=== PATIENT | female | born 1940 | race Caucasian/White ===

== ENCOUNTER 2021-04-08 15:33 | Inpatient (IN) | payer MEDICARE, OTHER ==
[2021-04-08 16:22] LABS: #Basophils 0.1 thou/uL (0.0-0.2); #Eosinphils 0.7 thou/uL (0.0-0.7); #Lymphocytes 2.3 thou/uL (1.20-3.40); #Monocytes 1.1 thou/uL (0.11-0.59); #Neutrophils 10.7 thou/uL (1.40-6.50); %Basophils 0.5 % (0.0-1.0); %Eosinophils 4.7 % (0.0-10.0); %Lymphocytes 15.3 % (21.0-51.0); %Monocytes 7.2 % (0.0-10.0); %Neutrophils 72.1 % (42.0-75.0); Hemoglobin 12.8 g/dL (12.0-16.0); Mean Corpuscular HGB CONC 33.4 g/dL (32.0-36.0); Mean Corpuscular Hemoglobin 29.6 pg (27.0-31.0); Mean Corpuscular Volume 88.6 fL (78.0-98.0); Mean Platelet Volume 7.7 fL (7.4-10.4); Platelet Count 345 thou/uL (130-400); RBC Distribution Width 13.5 % (11.5-14.5); Red Blood Cell (RBC) Count 4.32 mill/uL (4.20-5.40); White Blood Cell (WBC) Count 14.8 thou/uL (4.8-10.8)
[2021-04-08 16:57] LABS: ALT (SGPT) 8 U/L (8-55); AST (SGOT) 11 U/L (5-34); Albumin 3.7 g/dL (3.4-4.8); Alkaline Phosphatase 70 U/L (40-110); Anion Gap 13 mmol/L (10-20); BUN (Urea Nitrogen) 32 mg/dL (9.8-20.1); Bilirubin, Total 0.2 mg/dL (0.2-1.2); Calc. Creatinine Clearance 0 mL/min (70-130); Calcium 9.8 mg/dL (7.8-10.44); Carbon Dioxide 21 mmol/L (23-31); Chloride 108 mmol/L (98-107); Globulin 3.8 g/dL (2.4-3.5); Glucose 102 mg/dL (83-110); Potassium 4.2 mmol/L (3.5-5.1); Protein, Total 7.5 g/dL (5.8-8.1); Sodium 138 mmol/L (136-145)
[2021-04-08 18:26] LABS: Bacteria/HPF 4+ HPF (None Seen); Bilirubin Negative (Negative); Blood, Urine Negative (Negative); Clarity Turbid (Clear); Glucose, Urine (Dipstick) Normal (Negative); Ketone, Urine Negative (Negative); Leukocyte 500 Leu/uL (Negative); Nitrite 2+ (Negative); Protein, Urine (Dipstick) 50 mg/dL (Neg-Trace); RBC/HPF 0-3 HPF (0-3); Specific Gravity, Urine 1.016 (1.002-1.036); Squamous Epithelial 0-3 HPF (0-3); Urobilinogen Normal mg/dL (Less than 2); WBC/HPF Greater than 50 HPF (0-3); pH, Urine 5.5 (5.0-9.0)
[2021-04-08] MEDS ORDERED: cefTRIAXone\\ROCEPHIN 2 GM VIAL ONE (18:39)
[2021-04-08] MEDS ORDERED: Senokot S 8.6-50 MG TAB PO PRN (20:14)
[2021-04-08] MEDS ORDERED: Bisacodyl 5 MG TAB PO PRN (20:14)
[2021-04-08] MEDS ORDERED: Enoxaparin Sodium 40 MG/0.4 ML SYRINGE SC SCH (20:15)
[2021-04-08] MEDS ORDERED: hydrALAZINE 20 MG/ML VIAL SLOW IVP PRN (20:44)
[2021-04-08] MEDS ORDERED: Dextrose 5% in Water 1,000 ML IV PRN (20:46)
[2021-04-08] MEDS ORDERED: Dextrose 50% Abboject 50 ML SYRINGE SLOW IVP PRN (20:46)
[2021-04-08] MEDS: Famotidine/PF 20 mg/2ml Vial SLOW IVP SCH (23:42)
[2021-04-08] MEDS: Sodium Chloride 0.9% 1,000 ML IV SCH (23:43)
[2021-04-09 00:32] VITALS: BMI 24.0
[2021-04-09 06:15] LABS: #Basophils 0.1 thou/uL (0.0-0.2); #Eosinphils 0.7 thou/uL (0.0-0.7); #Lymphocytes 1.8 thou/uL (1.20-3.40); #Monocytes 0.9 thou/uL (0.11-0.59); #Neutrophils 9.7 thou/uL (1.40-6.50); %Basophils 0.6 % (0.0-1.0); %Eosinophils 5.2 % (0.0-10.0); %Lymphocytes 13.7 % (21.0-51.0); %Neutrophils 73.6 % (42.0-75.0); Hemoglobin 11.4 g/dL (12.0-16.0); Mean Corpuscular HGB CONC 32.3 g/dL (32.0-36.0); Mean Corpuscular Hemoglobin 28.8 pg (27.0-31.0); Mean Platelet Volume 7.7 fL (7.4-10.4); Platelet Count 310 thou/uL (130-400); RBC Distribution Width 13.5 % (11.5-14.5); Red Blood Cell (RBC) Count 3.96 mill/uL (4.20-5.40); White Blood Cell (WBC) Count 13.2 thou/uL (4.8-10.8)
[2021-04-09 06:34] LABS: Anion Gap 12 mmol/L (10-20); BUN (Urea Nitrogen) 24 mg/dL (9.8-20.1); Calc. Creatinine Clearance 37 mL/min (70-130); Calcium 8.7 mg/dL (7.8-10.44); Carbon Dioxide 21 mmol/L (23-31); Chloride 110 mmol/L (98-107); Glucose 149 mg/dL (83-110); Potassium 3.5 mmol/L (3.5-5.1); Sodium 139 mmol/L (136-145)
[2021-04-09 06:35] LABS: Hemoglobin A1c 5.9 % (4.0-6.0)
[2021-04-09] MEDS ORDERED: FLU VACC QS2021-22(65YR UP)/PF 240 MCG/0.7 ML SYRINGE IM ONE (09:00)
[2021-04-09] MEDS ORDERED: Amlodipine 10 MG TAB PO SCH (12:00)
[2021-04-09 17:03] LABS: SARS-CoV-2 PCR by NAA Not Detected (NotDetected)
[2021-04-09] MEDS: Sodium Chloride 0.9% 1,000 ML IV SCH (17:53)
[2021-04-09] MEDS: cefTRIAXone\\ROCEPHIN 2 GM in Sodium Chloride 0.9% 100 ML IVPB SCH (17:54)
[2021-04-09] MEDS: Famotidine/PF 20 mg/2ml Vial SLOW IVP SCH (20:13)
[2021-04-09] MEDS: Acetaminophen 325 MG TAB PO PRN (20:14)
[2021-04-09] MEDS: Enoxaparin Sodium 30 MG/0.3 ML SYRINGE SC SCH (20:14)
[2021-04-09] MEDS ORDERED: Enoxaparin Sodium 40 MG/0.4 ML SYRINGE SC SCH (21:00)
[2021-04-10 06:44] LABS: #Basophils 0.1 thou/uL (0.0-0.2); #Eosinphils 0.7 thou/uL (0.0-0.7); #Monocytes 1.2 thou/uL (0.11-0.59); #Neutrophils 9.5 thou/uL (1.40-6.50); %Basophils 0.7 % (0.0-1.0); %Monocytes 9.1 % (0.0-10.0); %Neutrophils 70.2 % (42.0-75.0); Hemoglobin 12.2 g/dL (12.0-16.0); Mean Corpuscular HGB CONC 33.9 g/dL (32.0-36.0); Mean Corpuscular Hemoglobin 29.7 pg (27.0-31.0); Mean Corpuscular Volume 87.6 fL (78.0-98.0); Mean Platelet Volume 7.6 fL (7.4-10.4); Platelet Count 340 thou/uL (130-400); RBC Distribution Width 13.4 % (11.5-14.5); Red Blood Cell (RBC) Count 4.09 mill/uL (4.20-5.40); White Blood Cell (WBC) Count 13.5 thou/uL (4.8-10.8)
[2021-04-10 06:59] LABS: Anion Gap 14 mmol/L (10-20); BUN (Urea Nitrogen) 14 mg/dL (9.8-20.1); Calc. Creatinine Clearance 41 mL/min (70-130); Calcium 8.6 mg/dL (7.8-10.44); Carbon Dioxide 21 mmol/L (23-31); Chloride 107 mmol/L (98-107); Glucose 199 mg/dL (83-110); Potassium 3.3 mmol/L (3.5-5.1); Sodium 139 mmol/L (136-145)
[2021-04-10] MEDS ORDERED: Potassium Chloride 20 MEQ TAB PO SCH (09:00)
[2021-04-10] MEDS: Amlodipine 10 MG TAB PO SCH (09:31)
[2021-04-10] MEDS: Sodium Chloride 0.9% 1,000 ML IV SCH (12:24)
[2021-04-10] MEDS: HumaLOG 300 UNITS/3 ML VIAL SC PRN ×3 (12:53→22:18)
[2021-04-10] MEDS: Acetaminophen 325 MG TAB PO PRN (16:38)
[2021-04-10] MEDS: cefTRIAXone\\ROCEPHIN 2 GM in Sodium Chloride 0.9% 100 ML IVPB SCH (17:43)
[2021-04-10] MEDS ORDERED: Dextrose 50% Abboject 50 ML SYRINGE SLOW IVP PRN (21:38)
[2021-04-10] MEDS ORDERED: Dextrose 5% in Water 1,000 ML IV PRN (21:38)
[2021-04-10] MEDS: Enoxaparin Sodium 30 MG/0.3 ML SYRINGE SC SCH (21:39)
[2021-04-10] MEDS: Famotidine/PF 20 mg/2ml Vial SLOW IVP SCH (21:40)
[2021-04-11] MEDS ORDERED: Lorazepam 2 MG/ML VIAL SLOW IVP SCH ×2 (01:58→21:00)
[2021-04-11] MEDS: HumaLOG 300 UNITS/3 ML VIAL SC PRN ×4 (05:22→23:45)
[2021-04-11 07:27] LABS: #Basophils 0.1 thou/uL (0.0-0.2); #Eosinphils 0.8 thou/uL (0.0-0.7); #Lymphocytes 2.1 thou/uL (1.20-3.40); #Monocytes 1.4 thou/uL (0.11-0.59); #Neutrophils 12.2 thou/uL (1.40-6.50); %Basophils 0.7 % (0.0-1.0); %Eosinophils 4.7 % (0.0-10.0); %Lymphocytes 12.5 % (21.0-51.0); %Monocytes 8.6 % (0.0-10.0); %Neutrophils 73.6 % (42.0-75.0); Hemoglobin 12.3 g/dL (12.0-16.0); Mean Corpuscular HGB CONC 33.9 g/dL (32.0-36.0); Mean Corpuscular Hemoglobin 29.7 pg (27.0-31.0); Mean Corpuscular Volume 87.8 fL (78.0-98.0); Mean Platelet Volume 7.9 fL (7.4-10.4); Platelet Count 338 thou/uL (130-400); RBC Distribution Width 13.5 % (11.5-14.5); Red Blood Cell (RBC) Count 4.14 mill/uL (4.20-5.40); White Blood Cell (WBC) Count 16.6 thou/uL (4.8-10.8)
[2021-04-11 07:47] LABS: Anion Gap 15 mmol/L (10-20); BUN (Urea Nitrogen) 14 mg/dL (9.8-20.1); Calc. Creatinine Clearance 37 mL/min (70-130); Calcium 8.3 mg/dL (7.8-10.44); Carbon Dioxide 21 mmol/L (23-31); Chloride 106 mmol/L (98-107); Glucose 185 mg/dL (83-110); Potassium 3.5 mmol/L (3.5-5.1); Sodium 138 mmol/L (136-145)
[2021-04-11] MEDS: Amlodipine 10 MG TAB PO SCH (08:32)
[2021-04-11] MEDS: Carvedilol 25 MG TAB PO SCH ×2 (09:25→23:44)
[2021-04-11] MEDS: ALPRAZolam 0.25 MG TAB PO SCH ×2 (09:25→23:44)
[2021-04-11] MEDS: DULoxetine 60 MG CAP PO SCH (09:25)
[2021-04-11] MEDS: Sodium Chloride 0.9% 1,000 ML IV SCH ×3 (09:27→23:45)
[2021-04-11] MEDS: cefTRIAXone\\ROCEPHIN 2 GM in Sodium Chloride 0.9% 100 ML IVPB SCH ×2 (17:39→17:50)
[2021-04-11] MEDS: Enoxaparin Sodium 30 MG/0.3 ML SYRINGE SC SCH (23:44)
[2021-04-11] MEDS: Famotidine/PF 20 mg/2ml Vial SLOW IVP SCH (23:45)
[2021-04-12] MEDS: HumaLOG 300 UNITS/3 ML VIAL SC PRN ×4 (05:17→21:08)
[2021-04-12 07:50] LABS: #Basophils 0.1 thou/uL (0.0-0.2); #Eosinphils 1.1 thou/uL (0.0-0.7); #Lymphocytes 1.6 thou/uL (1.20-3.40); #Monocytes 1.2 thou/uL (0.11-0.59); #Neutrophils 10.4 thou/uL (1.40-6.50); %Basophils 0.5 % (0.0-1.0); %Eosinophils 7.9 % (0.0-10.0); %Lymphocytes 10.9 % (21.0-51.0); %Monocytes 8.1 % (0.0-10.0); %Neutrophils 72.6 % (42.0-75.0); Hemoglobin 11.6 g/dL (12.0-16.0); Mean Corpuscular HGB CONC 33.3 g/dL (32.0-36.0); Mean Corpuscular Hemoglobin 29.5 pg (27.0-31.0); Mean Corpuscular Volume 88.6 fL (78.0-98.0); Mean Platelet Volume 7.3 fL (7.4-10.4); Platelet Count 323 thou/uL (130-400); RBC Distribution Width 13.6 % (11.5-14.5); Red Blood Cell (RBC) Count 3.94 mill/uL (4.20-5.40); White Blood Cell (WBC) Count 14.3 thou/uL (4.8-10.8)
[2021-04-12 08:12] LABS: Anion Gap 12 mmol/L (10-20); BUN (Urea Nitrogen) 12 mg/dL (9.8-20.1); Calc. Creatinine Clearance 45 mL/min (70-130); Calcium 7.9 mg/dL (7.8-10.44); Carbon Dioxide 23 mmol/L (23-31); Chloride 108 mmol/L (98-107); Glucose 190 mg/dL (83-110); Sodium 140 mmol/L (136-145)
[2021-04-12] MEDS ORDERED: Potassium Chloride 20 MEQ TAB PO SCH (08:45)
[2021-04-12] MEDS: ALPRAZolam 0.25 MG TAB PO SCH ×2 (09:09→20:06)
[2021-04-12] MEDS: Carvedilol 25 MG TAB PO SCH ×2 (09:09→20:06)
[2021-04-12] MEDS: Amlodipine 10 MG TAB PO SCH (09:09)
[2021-04-12] MEDS: DULoxetine 60 MG CAP PO SCH (09:09)
[2021-04-12] MEDS: Sodium Chloride 0.9% 1,000 ML IV SCH (12:21)
[2021-04-12] MEDS: cefTRIAXone\\ROCEPHIN 2 GM in Sodium Chloride 0.9% 100 ML IVPB SCH (17:49)
[2021-04-12] MEDS: Famotidine/PF 20 mg/2ml Vial SLOW IVP SCH (20:06)
[2021-04-12] MEDS: Enoxaparin Sodium 40 MG/0.4 ML SYRINGE SC SCH (20:06)
[2021-04-12] MEDS ORDERED: Lorazepam 2 MG/ML VIAL SLOW IVP SCH (22:30)
[2021-04-13] MEDS: Sodium Chloride 0.9% 1,000 ML IV SCH ×2 (02:58→17:59)
[2021-04-13] MEDS: HumaLOG 300 UNITS/3 ML VIAL SC PRN ×4 (05:18→20:54)
[2021-04-13 07:49] LABS: #Basophils 0.1 thou/uL (0.0-0.2); #Eosinphils 1.2 thou/uL (0.0-0.7); #Lymphocytes 1.8 thou/uL (1.20-3.40); #Monocytes 1.4 thou/uL (0.11-0.59); #Neutrophils 11.4 thou/uL (1.40-6.50); %Basophils 0.4 % (0.0-1.0); %Eosinophils 7.8 % (0.0-10.0); %Lymphocytes 11.1 % (21.0-51.0); %Monocytes 8.7 % (0.0-10.0); %Neutrophils 71.9 % (42.0-75.0); Hemoglobin 11.4 g/dL (12.0-16.0); Mean Corpuscular HGB CONC 32.6 g/dL (32.0-36.0); Mean Corpuscular Hemoglobin 28.8 pg (27.0-31.0); Mean Corpuscular Volume 88.5 fL (78.0-98.0); Mean Platelet Volume 7.7 fL (7.4-10.4); Platelet Count 319 thou/uL (130-400); RBC Distribution Width 13.6 % (11.5-14.5); Red Blood Cell (RBC) Count 3.94 mill/uL (4.20-5.40); White Blood Cell (WBC) Count 15.8 thou/uL (4.8-10.8)
[2021-04-13 08:11] LABS: Anion Gap 13 mmol/L (10-20); BUN (Urea Nitrogen) 13 mg/dL (9.8-20.1); Calc. Creatinine Clearance 41 mL/min (70-130); Carbon Dioxide 24 mmol/L (23-31); Chloride 105 mmol/L (98-107); Glucose 168 mg/dL (83-110); Potassium 3.2 mmol/L (3.5-5.1); Sodium 139 mmol/L (136-145)
[2021-04-13] MEDS: Amlodipine 10 MG TAB PO SCH (09:51)
[2021-04-13] MEDS: DULoxetine 60 MG CAP PO SCH (09:51)
[2021-04-13] MEDS: ALPRAZolam 0.25 MG TAB PO SCH ×2 (09:51→20:54)
[2021-04-13] MEDS: Carvedilol 25 MG TAB PO SCH ×2 (09:51→20:54)
[2021-04-13] MEDS: cefTRIAXone\\ROCEPHIN 2 GM in Sodium Chloride 0.9% 100 ML IVPB SCH (17:58)
[2021-04-13] MEDS: Enoxaparin Sodium 40 MG/0.4 ML SYRINGE SC SCH (20:53)
[2021-04-13] MEDS: Famotidine/PF 20 mg/2ml Vial SLOW IVP SCH (20:53)
[2021-04-13] MEDS: Acetaminophen 325 MG TAB PO PRN (20:55)
[2021-04-14] MEDS: HumaLOG 300 UNITS/3 ML VIAL SC PRN ×3 (05:03→22:05)
[2021-04-14] MEDS: Sodium Chloride 0.9% 1,000 ML IV SCH ×2 (05:06→17:04)
[2021-04-14] MEDS: Amlodipine 10 MG TAB PO SCH (07:46)
[2021-04-14] MEDS: ALPRAZolam 0.25 MG TAB PO SCH ×2 (07:46→20:40)
[2021-04-14] MEDS: Carvedilol 25 MG TAB PO SCH ×2 (07:46→20:40)
[2021-04-14] MEDS: DULoxetine 60 MG CAP PO SCH (07:46)
[2021-04-14 08:17] LABS: #Basophils 0.1 thou/uL (0.0-0.2); #Eosinphils 1.1 thou/uL (0.0-0.7); #Monocytes 1.4 thou/uL (0.11-0.59); #Neutrophils 10.8 thou/uL (1.40-6.50); %Basophils 0.4 % (0.0-1.0); %Eosinophils 7.1 % (0.0-10.0); %Lymphocytes 13.1 % (21.0-51.0); %Monocytes 8.8 % (0.0-10.0); %Neutrophils 70.6 % (42.0-75.0); Hemoglobin 11.4 g/dL (12.0-16.0); Mean Corpuscular HGB CONC 32.3 g/dL (32.0-36.0); Mean Corpuscular Hemoglobin 29.3 pg (27.0-31.0); Mean Corpuscular Volume 90.7 fL (78.0-98.0); Mean Platelet Volume 7.5 fL (7.4-10.4); Platelet Count 329 thou/uL (130-400); RBC Distribution Width 13.9 % (11.5-14.5); Red Blood Cell (RBC) Count 3.89 mill/uL (4.20-5.40); White Blood Cell (WBC) Count 15.4 thou/uL (4.8-10.8)
[2021-04-14 08:32] LABS: Anion Gap 17 mmol/L (10-20); BUN (Urea Nitrogen) 13 mg/dL (9.8-20.1); Calc. Creatinine Clearance 42 mL/min (70-130); Calcium 7.9 mg/dL (7.8-10.44); Carbon Dioxide 19 mmol/L (23-31); Chloride 107 mmol/L (98-107); Glucose 180 mg/dL (83-110); Potassium 3.5 mmol/L (3.5-5.1); Sodium 139 mmol/L (136-145)
[2021-04-14 10:08] LABS: Band 1 % (5-11); Eosinophils 9 % (0-10); Lymphocytes 12 % (21-51); MDiff Complete? YES; Monocytes 6 % (0-10); Neutrophil 71 % (42-75); RBC Morphology Normal; Reactive Lymphocytes 1 % (0-10)
[2021-04-14] MEDS ORDERED: MEROPENEM 1 GM/50 ML 1 GM in Premix Bag 1 BAG IVPB SCH ×2 (13:00→21:00)
[2021-04-14] MEDS ORDERED: Meropenem 1 GM in Sodium Chloride 0.9% 100 ML IVPB SCH (14:00)
[2021-04-14] MEDS: Enoxaparin Sodium 40 MG/0.4 ML SYRINGE SC SCH (20:40)
[2021-04-14] MEDS: Famotidine/PF 20 mg/2ml Vial SLOW IVP SCH (20:40)
[2021-04-14] MEDS ORDERED: Ziprasidone 20 MG VIAL IM SCH (22:45)
[2021-04-15] MEDS: Sodium Chloride 0.9% 1,000 ML IV SCH ×2 (04:31→21:13)
[2021-04-15] MEDS: HumaLOG 300 UNITS/3 ML VIAL SC PRN ×3 (06:13→21:14)
[2021-04-15 07:25] LABS: #Basophils 0.1 thou/uL (0.0-0.2); #Eosinphils 0.7 thou/uL (0.0-0.7); #Lymphocytes 2.1 thou/uL (1.20-3.40); #Monocytes 1.5 thou/uL (0.11-0.59); #Neutrophils 11.4 thou/uL (1.40-6.50); %Basophils 0.5 % (0.0-1.0); %Eosinophils 4.5 % (0.0-10.0); %Lymphocytes 13.5 % (21.0-51.0); %Monocytes 9.2 % (0.0-10.0); %Neutrophils 72.4 % (42.0-75.0); Hemoglobin 11.8 g/dL (12.0-16.0); Mean Corpuscular HGB CONC 33.1 g/dL (32.0-36.0); Mean Corpuscular Volume 90.5 fL (78.0-98.0); Mean Platelet Volume 7.6 fL (7.4-10.4); Platelet Count 328 thou/uL (130-400); RBC Distribution Width 13.9 % (11.5-14.5); Red Blood Cell (RBC) Count 3.94 mill/uL (4.20-5.40); White Blood Cell (WBC) Count 15.8 thou/uL (4.8-10.8)
[2021-04-15 07:45] LABS: Anion Gap 14 mmol/L (10-20); BUN (Urea Nitrogen) 15 mg/dL (9.8-20.1); Calc. Creatinine Clearance 39 mL/min (70-130); Carbon Dioxide 25 mmol/L (23-31); Chloride 103 mmol/L (98-107); Glucose 237 mg/dL (83-110); Sodium 139 mmol/L (136-145)
[2021-04-15] MEDS: ALPRAZolam 0.25 MG TAB PO SCH ×2 (08:15→21:07)
[2021-04-15] MEDS: Carvedilol 25 MG TAB PO SCH ×2 (08:15→21:07)
[2021-04-15] MEDS: Cefepime 1 GM in Sodium Chloride 0.9% 100 ML IVPB SCH ×2 (08:15→21:13)
[2021-04-15] MEDS: DULoxetine 60 MG CAP PO SCH (08:15)
[2021-04-15] MEDS: Amlodipine 10 MG TAB PO SCH (08:15)
[2021-04-15] MEDS: Famotidine/PF 20 mg/2ml Vial SLOW IVP SCH (21:08)
[2021-04-15] MEDS: Enoxaparin Sodium 40 MG/0.4 ML SYRINGE SC SCH (21:08)
[2021-04-16 08:55] LABS: Band 4 % (5-11); Eosinophils 6 % (0-10); Hemoglobin 12.4 g/dL (12.0-16.0); Lymphocytes 10 % (21-51); MDiff Complete? YES; Mean Corpuscular HGB CONC 33.6 g/dL (32.0-36.0); Mean Corpuscular Hemoglobin 30.1 pg (27.0-31.0); Mean Corpuscular Volume 89.5 fL (78.0-98.0); Mean Platelet Volume 7.3 fL (7.4-10.4); Monocytes 4 % (0-10); Neutrophil 76 % (42-75); Platelet Count 370 thou/uL (130-400); RBC Distribution Width 13.5 % (11.5-14.5); Red Blood Cell (RBC) Count 4.13 mill/uL (4.20-5.40); White Blood Cell (WBC) Count 21.8 thou/uL (4.8-10.8)
[2021-04-16 08:59] LABS: Anion Gap 15 mmol/L (10-20); BUN (Urea Nitrogen) 15 mg/dL (9.8-20.1); Calc. Creatinine Clearance 48 mL/min (70-130); Calcium 7.8 mg/dL (7.8-10.44); Carbon Dioxide 24 mmol/L (23-31); Chloride 102 mmol/L (98-107); Glucose 271 mg/dL (83-110); Sodium 138 mmol/L (136-145)
[2021-04-16 09:07] LABS: Potassium 2.9 mmol/L (3.5-5.1)
[2021-04-16] MEDS ORDERED: Potassium Bicarbonate/Cit Ac 20 MEQ TAB PO SCH (09:45)
[2021-04-16] MEDS: DULoxetine 60 MG CAP PO SCH (10:30)
[2021-04-16] MEDS: Amlodipine 10 MG TAB PO SCH (10:31)
[2021-04-16] MEDS: Cefepime 1 GM in Sodium Chloride 0.9% 100 ML IVPB SCH (10:32)
[2021-04-16] MEDS: Carvedilol 25 MG TAB PO SCH ×2 (10:32→21:18)
[2021-04-16] MEDS: ALPRAZolam 0.25 MG TAB PO SCH ×2 (10:32→21:18)
[2021-04-16] MEDS: Vancomycin 1 GM in Premix Bag 1 BAG IVPB SCH (12:58)
[2021-04-16] MEDS: Sodium Chloride 0.9% 1,000 ML IV SCH (13:35)
[2021-04-16] MEDS: HumaLOG 300 UNITS/3 ML VIAL SC PRN ×2 (18:06→21:35)
[2021-04-16 20:22] LABS: SARS-CoV-2 PCR by NAA Not Detected (NotDetected)
[2021-04-16] MEDS: Enoxaparin Sodium 40 MG/0.4 ML SYRINGE SC SCH (21:18)
[2021-04-16] MEDS: Aztreonam 1 GM in Sodium Chloride 0.9% 100 ML IVPB SCH (21:18)
[2021-04-16] MEDS: Famotidine/PF 20 mg/2ml Vial SLOW IVP SCH (21:19)
[2021-04-17] MEDS: Sodium Chloride 0.9% 1,000 ML IV SCH ×3 (02:36→19:20)
[2021-04-17 08:55] LABS: #Basophils 0.1 thou/uL (0.0-0.2); #Eosinphils 1.1 thou/uL (0.0-0.7); #Lymphocytes 2.1 thou/uL (1.20-3.40); #Monocytes 1.9 thou/uL (0.11-0.59); #Neutrophils 20.4 thou/uL (1.40-6.50); %Basophils 0.3 % (0.0-1.0); %Eosinophils 4.4 % (0.0-10.0); %Lymphocytes 8.2 % (21.0-51.0); %Monocytes 7.5 % (0.0-10.0); %Neutrophils 79.6 % (42.0-75.0); Hemoglobin 11.7 g/dL (12.0-16.0); Mean Corpuscular HGB CONC 32.3 g/dL (32.0-36.0); Mean Platelet Volume 7.5 fL (7.4-10.4); Platelet Count 369 thou/uL (130-400); RBC Distribution Width 13.8 % (11.5-14.5); Red Blood Cell (RBC) Count 4.05 mill/uL (4.20-5.40); White Blood Cell (WBC) Count 25.6 thou/uL (4.8-10.8)
[2021-04-17] MEDS: Aztreonam 1 GM in Sodium Chloride 0.9% 100 ML IVPB SCH ×2 (08:58→22:21)
[2021-04-17] MEDS: Amlodipine 10 MG TAB PO SCH (08:58)
[2021-04-17] MEDS: Carvedilol 25 MG TAB PO SCH ×2 (08:58→22:20)
[2021-04-17] MEDS: ALPRAZolam 0.25 MG TAB PO SCH ×2 (08:58→22:20)
[2021-04-17] MEDS: DULoxetine 60 MG CAP PO SCH (08:58)
[2021-04-17 09:17] LABS: Anion Gap 15 mmol/L (10-20); BUN (Urea Nitrogen) 17 mg/dL (9.8-20.1); Calc. Creatinine Clearance 52 mL/min (70-130); Calcium 7.7 mg/dL (7.8-10.44); Carbon Dioxide 24 mmol/L (23-31); Chloride 102 mmol/L (98-107); Glucose 241 mg/dL (83-110); Potassium 3.6 mmol/L (3.5-5.1); Sodium 137 mmol/L (136-145)
[2021-04-17] MEDS: Vancomycin 1 GM in Premix Bag 1 BAG IVPB SCH (11:44)
[2021-04-17] MEDS: HumaLOG 300 UNITS/3 ML VIAL SC PRN ×2 (11:44→18:02)
[2021-04-17] MEDS: diphenhydrAMINE 25 MG CAP PO PRN (15:44)
[2021-04-17] MEDS: Acetaminophen 325 MG TAB PO PRN (22:20)
[2021-04-17] MEDS: Famotidine/PF 20 mg/2ml Vial SLOW IVP SCH (22:21)
[2021-04-17] MEDS: Enoxaparin Sodium 40 MG/0.4 ML SYRINGE SC SCH (22:21)
[2021-04-18 07:29] LABS: #Basophils 0.1 thou/uL (0.0-0.2); #Eosinphils 0.8 thou/uL (0.0-0.7); #Lymphocytes 2.5 thou/uL (1.20-3.40); #Monocytes 1.6 thou/uL (0.11-0.59); #Neutrophils 18.4 thou/uL (1.40-6.50); %Basophils 0.3 % (0.0-1.0); %Eosinophils 3.3 % (0.0-10.0); %Lymphocytes 10.8 % (21.0-51.0); %Monocytes 6.7 % (0.0-10.0); %Neutrophils 78.9 % (42.0-75.0); Hemoglobin 11.9 g/dL (12.0-16.0); Mean Corpuscular HGB CONC 31.6 g/dL (32.0-36.0); Mean Corpuscular Hemoglobin 28.5 pg (27.0-31.0); Mean Corpuscular Volume 90.1 fL (78.0-98.0); Mean Platelet Volume 7.6 fL (7.4-10.4); Platelet Count 399 thou/uL (130-400); RBC Distribution Width 13.6 % (11.5-14.5); Red Blood Cell (RBC) Count 4.17 mill/uL (4.20-5.40); White Blood Cell (WBC) Count 23.3 thou/uL (4.8-10.8)
[2021-04-18 07:44] LABS: Anion Gap 15 mmol/L (10-20); BUN (Urea Nitrogen) 17 mg/dL (9.8-20.1); Calc. Creatinine Clearance 51 mL/min (70-130); Calcium 7.6 mg/dL (7.8-10.44); Carbon Dioxide 23 mmol/L (23-31); Chloride 100 mmol/L (98-107); Glucose 211 mg/dL (83-110); Sodium 135 mmol/L (136-145)
[2021-04-18] MEDS: Aztreonam 1 GM in Sodium Chloride 0.9% 100 ML IVPB SCH ×2 (10:14→20:38)
[2021-04-18] MEDS: Carvedilol 25 MG TAB PO SCH ×2 (10:14→20:37)
[2021-04-18] MEDS: ALPRAZolam 0.25 MG TAB PO SCH ×2 (10:14→20:36)
[2021-04-18] MEDS: Amlodipine 10 MG TAB PO SCH (10:14)
[2021-04-18] MEDS: DULoxetine 60 MG CAP PO SCH (10:14)
[2021-04-18] MEDS: Sodium Chloride 0.9% 1,000 ML IV SCH ×2 (10:15→13:17)
[2021-04-18] MEDS ORDERED: Potassium Chloride 20 MEQ TAB PO SCH (12:30)
[2021-04-18] MEDS: Vancomycin 1 GM in Premix Bag 1 BAG IVPB SCH (12:52)
[2021-04-18] MEDS: HumaLOG 300 UNITS/3 ML VIAL SC PRN ×2 (13:09→22:14)
[2021-04-18] MEDS: diphenhydrAMINE 25 MG CAP PO PRN (16:15)
[2021-04-18] MEDS: Famotidine/PF 20 mg/2ml Vial SLOW IVP SCH (20:35)
[2021-04-18] MEDS: Enoxaparin Sodium 40 MG/0.4 ML SYRINGE SC SCH (20:36)
[2021-04-19] MEDS: Sodium Chloride 0.9% 1,000 ML IV SCH ×3 (00:06→12:23)
[2021-04-19] MEDS: HumaLOG 300 UNITS/3 ML VIAL SC PRN ×4 (06:04→20:10)
[2021-04-19] MEDS: diphenhydrAMINE 25 MG CAP PO PRN ×3 (06:15→20:03)
[2021-04-19 07:30] LABS: #Eosinphils 0.8 thou/uL (0.0-0.7); #Monocytes 1.4 thou/uL (0.11-0.59); %Eosinophils 4.1 % (0.0-10.0); %Monocytes 6.9 % (0.0-10.0); Hemoglobin 10.6 g/dL (12.0-16.0); Mean Corpuscular HGB CONC 31.9 g/dL (32.0-36.0); Mean Corpuscular Hemoglobin 28.9 pg (27.0-31.0); Mean Corpuscular Volume 90.7 fL (78.0-98.0); Mean Platelet Volume 7.5 fL (7.4-10.4); Platelet Count 342 thou/uL (130-400); RBC Distribution Width 13.6 % (11.5-14.5); Red Blood Cell (RBC) Count 3.67 mill/uL (4.20-5.40); White Blood Cell (WBC) Count 20.3 thou/uL (4.8-10.8)
[2021-04-19 07:48] LABS: Anion Gap 15 mmol/L (10-20); BUN (Urea Nitrogen) 18 mg/dL (9.8-20.1); Calc. Creatinine Clearance 44 mL/min (70-130); Calcium 6.9 mg/dL (7.8-10.44); Carbon Dioxide 19 mmol/L (23-31); Chloride 104 mmol/L (98-107); Glucose 195 mg/dL (83-110); Potassium 3.2 mmol/L (3.5-5.1); Sodium 135 mmol/L (136-145)
[2021-04-19] MEDS: Carvedilol 25 MG TAB PO SCH ×2 (09:02→20:05)
[2021-04-19] MEDS: Amlodipine 10 MG TAB PO SCH (09:02)
[2021-04-19] MEDS: DULoxetine 60 MG CAP PO SCH (09:02)
[2021-04-19] MEDS: Aztreonam 1 GM in Sodium Chloride 0.9% 100 ML IVPB SCH ×2 (09:02→20:04)
[2021-04-19] MEDS: ALPRAZolam 0.25 MG TAB PO SCH ×2 (09:02→20:03)
[2021-04-19 11:55] LABS: Vancomycin, Trough 6.6 ug/mL
[2021-04-19] MEDS: Famotidine/PF 20 mg/2ml Vial SLOW IVP SCH (20:05)
[2021-04-19] MEDS: Enoxaparin Sodium 40 MG/0.4 ML SYRINGE SC SCH (20:13)
[2021-04-19] MEDS: Acetaminophen 325 MG TAB PO PRN (22:54)
[2021-04-20] MEDS: diphenhydrAMINE 25 MG CAP PO PRN ×2 (04:32→21:31)
[2021-04-20] MEDS: Sodium Chloride 0.9% 1,000 ML IV SCH (04:33)
[2021-04-20 06:13] LABS: #Basophils 0.1 thou/uL (0.0-0.2); #Eosinphils 0.8 thou/uL (0.0-0.7); #Monocytes 1.9 thou/uL (0.11-0.59); #Neutrophils 16.7 thou/uL (1.40-6.50); %Basophils 0.5 % (0.0-1.0); %Eosinophils 3.5 % (0.0-10.0); %Lymphocytes 13.3 % (21.0-51.0); %Monocytes 8.6 % (0.0-10.0); Hemoglobin 10.5 g/dL (12.0-16.0); Mean Corpuscular HGB CONC 31.1 g/dL (32.0-36.0); Mean Corpuscular Hemoglobin 28.3 pg (27.0-31.0); Mean Corpuscular Volume 91.1 fL (78.0-98.0); Mean Platelet Volume 7.8 fL (7.4-10.4); Platelet Count 408 thou/uL (130-400); RBC Distribution Width 13.7 % (11.5-14.5); Red Blood Cell (RBC) Count 3.72 mill/uL (4.20-5.40); White Blood Cell (WBC) Count 22.5 thou/uL (4.8-10.8)
[2021-04-20 06:28] LABS: Anion Gap 14 mmol/L (10-20); BUN (Urea Nitrogen) 18 mg/dL (9.8-20.1); Calc. Creatinine Clearance 48 mL/min (70-130); Calcium 7.8 mg/dL (7.8-10.44); Carbon Dioxide 23 mmol/L (23-31); Chloride 102 mmol/L (98-107); Glucose 196 mg/dL (83-110); Potassium 3.1 mmol/L (3.5-5.1); Sodium 136 mmol/L (136-145)
[2021-04-20] MEDS: Aztreonam 1 GM in Sodium Chloride 0.9% 100 ML IVPB SCH (09:35)
[2021-04-20] MEDS: ALPRAZolam 0.25 MG TAB PO SCH ×2 (09:49→21:22)
[2021-04-20] MEDS: DULoxetine 60 MG CAP PO SCH (09:57)
[2021-04-20] MEDS: Amlodipine 10 MG TAB PO SCH (09:58)
[2021-04-20] MEDS: Carvedilol 25 MG TAB PO SCH ×2 (09:58→21:24)
[2021-04-20] MEDS: HumaLOG 300 UNITS/3 ML VIAL SC PRN ×2 (13:30→21:39)
[2021-04-20] MEDS ORDERED: Potassium Chloride 20 MEQ TAB PO SCH (14:45)
[2021-04-20] MEDS: Famotidine/PF 20 mg/2ml Vial SLOW IVP SCH (21:22)
[2021-04-20] MEDS: Enoxaparin Sodium 40 MG/0.4 ML SYRINGE SC SCH (21:23)
[2021-04-21] MEDS: diphenhydrAMINE 25 MG CAP PO PRN (05:52)
[2021-04-21] MEDS: Acetaminophen 325 MG TAB PO PRN (05:52)
[2021-04-21 06:48] LABS: Band 13 % (5-11); Eosinophils 1 % (0-10); Hemoglobin 9.9 g/dL (12.0-16.0); Hypochromia SLIGHT = 6-15 cells (100X) (0-5/hpf); Lymphocytes 13 % (21-51); MDiff Complete? YES; Mean Corpuscular HGB CONC 30.4 g/dL (32.0-36.0); Mean Corpuscular Hemoglobin 28.2 pg (27.0-31.0); Mean Corpuscular Volume 92.6 fL (78.0-98.0); Mean Platelet Volume 7.5 fL (7.4-10.4); Monocytes 13 % (0-10); Neutrophil 60 % (42-75); Platelet Count 405 thou/uL (130-400); Platelet Morphology Comment Appears Increased; RBC Distribution Width 13.9 % (11.5-14.5); White Blood Cell (WBC) Count 21.4 thou/uL (4.8-10.8)
[2021-04-21 06:50] LABS: Anion Gap 16 mmol/L (10-20); BUN (Urea Nitrogen) 17 mg/dL (9.8-20.1); Calc. Creatinine Clearance 47 mL/min (70-130); Calcium 7.9 mg/dL (7.8-10.44); Carbon Dioxide 19 mmol/L (23-31); Chloride 106 mmol/L (98-107); Glucose 248 mg/dL (83-110); Potassium 3.7 mmol/L (3.5-5.1); Sodium 137 mmol/L (136-145)
[2021-04-21] MEDS: Sodium Chloride 0.9% 1,000 ML IV SCH ×3 (08:39→18:00)
[2021-04-21] MEDS: ALPRAZolam 0.25 MG TAB PO SCH ×2 (08:41→20:04)
[2021-04-21] MEDS: DULoxetine 60 MG CAP PO SCH (08:41)
[2021-04-21] MEDS: Amlodipine 10 MG TAB PO SCH (08:41)
[2021-04-21] MEDS: Carvedilol 25 MG TAB PO SCH ×2 (08:42→20:05)
[2021-04-21] MEDS: metFORMIN 500 MG TAB PO SCH ×2 (08:42→18:00)
[2021-04-21] MEDS: glipiZIDE 5 MG TAB PO SCH (08:42)
[2021-04-21] MEDS: Alogliptin 25 MG TAB PO SCH (09:44)
[2021-04-21] MEDS: HumaLOG 300 UNITS/3 ML VIAL SC PRN (12:04)
[2021-04-21] MEDS: Enoxaparin Sodium 40 MG/0.4 ML SYRINGE SC SCH (20:05)
[2021-04-21] MEDS: Famotidine/PF 20 mg/2ml Vial SLOW IVP SCH (20:05)
[2021-04-22] MEDS: Sodium Chloride 0.9% 1,000 ML IV SCH (05:51)
[2021-04-22 06:43] LABS: Anion Gap 15 mmol/L (10-20); BUN (Urea Nitrogen) 20 mg/dL (9.8-20.1); Calc. Creatinine Clearance 46 mL/min (70-130); Calcium 7.5 mg/dL (7.8-10.44); Carbon Dioxide 19 mmol/L (23-31); Chloride 109 mmol/L (98-107); Glucose 153 mg/dL (83-110); Potassium 3.7 mmol/L (3.5-5.1); Sodium 139 mmol/L (136-145)
[2021-04-22 07:02] LABS: Hemoglobin 10.1 g/dL (12.0-16.0); Mean Corpuscular Hemoglobin 29.7 pg (27.0-31.0); Mean Corpuscular Volume 92.9 fL (78.0-98.0); RBC Distribution Width 13.9 % (11.5-14.5); Red Blood Cell (RBC) Count 3.41 mill/uL (4.20-5.40)
[2021-04-22 07:15] LABS: Band 1 % (5-11); Eosinophils 2 % (0-10); Hypersemented Neutrophil SLIGHT; Lymphocytes 8 % (21-51); MDiff Complete? YES; Mean Platelet Volume 7.5 fL (7.4-10.4); Monocytes 8 % (0-10); Neutrophil 81 % (42-75); Platelet Count 411 thou/uL (130-400); Platelet Morphology Comment Appears Increased; Polychromasia SLIGHT = 2-3 cells (100X) (0-2/hpf); White Blood Cell (WBC) Count 23.1 thou/uL (4.8-10.8)
[2021-04-22] MEDS: ALPRAZolam 0.25 MG TAB PO SCH ×2 (09:28→20:04)
[2021-04-22] MEDS: glipiZIDE 5 MG TAB PO SCH (09:29)
[2021-04-22] MEDS: metFORMIN 500 MG TAB PO SCH ×2 (09:29→17:32)
[2021-04-22] MEDS: Carvedilol 25 MG TAB PO SCH ×2 (09:29→20:25)
[2021-04-22] MEDS: Amlodipine 10 MG TAB PO SCH (09:29)
[2021-04-22] MEDS: DULoxetine 60 MG CAP PO SCH (09:29)
[2021-04-22] MEDS: diphenhydrAMINE 25 MG CAP PO PRN ×2 (12:14→20:04)
[2021-04-22] MEDS: HumaLOG 300 UNITS/3 ML VIAL SC PRN ×3 (13:09→20:17)
[2021-04-22] MEDS: Alogliptin 25 MG TAB PO SCH (14:01)
[2021-04-22] MEDS ORDERED: Haloperidol Lactate 5 MG/ML VIAL IM SCH (14:30)
[2021-04-22] MEDS: Megestrol Acetate 40 MG TAB PO SCH ×2 (15:02→20:04)
[2021-04-22] MEDS: Acetaminophen 325 MG TAB PO PRN (20:04)
[2021-04-22] MEDS: Enoxaparin Sodium 40 MG/0.4 ML SYRINGE SC SCH (20:06)
[2021-04-22] MEDS: Famotidine/PF 20 mg/2ml Vial SLOW IVP SCH (20:06)
[2021-04-23] MEDS: Sodium Chloride 0.9% 1,000 ML IV SCH ×2 (01:14→12:37)
[2021-04-23 07:34] LABS: Anion Gap 15 mmol/L (10-20); BUN (Urea Nitrogen) 23 mg/dL (9.8-20.1); Calc. Creatinine Clearance 48 mL/min (70-130); Calcium 8.2 mg/dL (7.8-10.44); Carbon Dioxide 19 mmol/L (23-31); Chloride 108 mmol/L (98-107); Glucose 126 mg/dL (83-110); Hemoglobin 10.5 g/dL (12.0-16.0); Mean Corpuscular HGB CONC 30.8 g/dL (32.0-36.0); Mean Corpuscular Hemoglobin 28.7 pg (27.0-31.0); Mean Platelet Volume 7.6 fL (7.4-10.4); Platelet Count 450 thou/uL (130-400); RBC Distribution Width 14.1 % (11.5-14.5); Red Blood Cell (RBC) Count 3.65 mill/uL (4.20-5.40); Sodium 138 mmol/L (136-145); White Blood Cell (WBC) Count 20.7 thou/uL (4.8-10.8)
[2021-04-23 08:03] LABS: Band 8 % (5-11); Eosinophils 3 % (0-10); Hypersemented Neutrophil SLIGHT; Lymphocytes 10 % (21-51); MDiff Complete? YES; Monocytes 13 % (0-10); Neutrophil 63 % (42-75); Platelet Morphology Comment Appears Increased; Polychromasia SLIGHT = 2-3 cells (100X) (0-2/hpf); Reactive Lymphocytes 2 % (0-10); Vacuoles SLIGHT
[2021-04-23] MEDS: Carvedilol 25 MG TAB PO SCH ×2 (08:53→20:37)
[2021-04-23] MEDS: ALPRAZolam 0.25 MG TAB PO SCH ×2 (08:53→20:37)
[2021-04-23] MEDS: diphenhydrAMINE 25 MG CAP PO PRN (08:53)
[2021-04-23] MEDS: Amlodipine 10 MG TAB PO SCH (08:53)
[2021-04-23] MEDS: glipiZIDE 5 MG TAB PO SCH (08:53)
[2021-04-23] MEDS: DULoxetine 60 MG CAP PO SCH (08:55)
[2021-04-23] MEDS: metFORMIN 500 MG TAB PO SCH ×2 (08:55→16:23)
[2021-04-23] MEDS: Megestrol Acetate 40 MG TAB PO SCH ×3 (08:55→20:38)
[2021-04-23] MEDS: Alogliptin 25 MG TAB PO SCH (11:25)
[2021-04-23] MEDS: HumaLOG 300 UNITS/3 ML VIAL SC PRN ×2 (12:37→16:23)
[2021-04-23] MEDS: Enoxaparin Sodium 40 MG/0.4 ML SYRINGE SC SCH (20:37)
[2021-04-23] MEDS: Famotidine/PF 20 mg/2ml Vial SLOW IVP SCH (20:38)
[2021-04-24] MEDS: Sodium Chloride 0.9% 1,000 ML IV SCH (04:06)
[2021-04-24 08:38] LABS: Hemoglobin 10.2 g/dL (12.0-16.0); Mean Corpuscular HGB CONC 32.2 g/dL (32.0-36.0); Mean Corpuscular Hemoglobin 29.7 pg (27.0-31.0); Mean Corpuscular Volume 92.3 fL (78.0-98.0); Mean Platelet Volume 7.1 fL (7.4-10.4); Platelet Count 504 thou/uL (130-400); Red Blood Cell (RBC) Count 3.43 mill/uL (4.20-5.40); White Blood Cell (WBC) Count 25.2 thou/uL (4.8-10.8)
[2021-04-24 08:57] LABS: Anion Gap 15 mmol/L (10-20); BUN (Urea Nitrogen) 24 mg/dL (9.8-20.1); Calc. Creatinine Clearance 49 mL/min (70-130); Calcium 7.8 mg/dL (7.8-10.44); Carbon Dioxide 21 mmol/L (23-31); Chloride 108 mmol/L (98-107); Glucose 138 mg/dL (83-110); Potassium 3.7 mmol/L (3.5-5.1); Sodium 140 mmol/L (136-145)
[2021-04-24] MEDS: DULoxetine 60 MG CAP PO SCH (09:46)
[2021-04-24] MEDS: Carvedilol 25 MG TAB PO SCH ×2 (09:47→20:55)
[2021-04-24] MEDS: ALPRAZolam 0.25 MG TAB PO SCH ×2 (09:47→20:55)
[2021-04-24] MEDS: Amlodipine 10 MG TAB PO SCH (09:47)
[2021-04-24] MEDS: metFORMIN 500 MG TAB PO SCH ×2 (09:47→17:19)
[2021-04-24] MEDS: Megestrol Acetate 40 MG TAB PO SCH ×3 (09:47→20:59)
[2021-04-24] MEDS: glipiZIDE 5 MG TAB PO SCH (09:47)
[2021-04-24 10:11] LABS: Band 16 % (5-11); Lymphocytes 9 % (21-51); MDiff Complete? YES; Monocytes 9 % (0-10); Neutrophil 66 % (42-75); Platelet Morphology Comment Appears Increased; Polychromasia SLIGHT = 2-3 cells (100X) (0-2/hpf)
[2021-04-24] MEDS: Alogliptin 25 MG TAB PO SCH (10:43)
[2021-04-24 11:51] LABS: SARS-CoV-2 PCR by NAA Not Detected (NotDetected)
[2021-04-24] MEDS: HumaLOG 300 UNITS/3 ML VIAL SC PRN ×2 (17:20→21:01)
[2021-04-24] MEDS: Enoxaparin Sodium 40 MG/0.4 ML SYRINGE SC SCH (20:55)
[2021-04-24] MEDS: Famotidine/PF 20 mg/2ml Vial SLOW IVP SCH (20:56)
[2021-04-25] MEDS: diphenhydrAMINE 25 MG CAP PO PRN (02:28)
[2021-04-25] MEDS: Acetaminophen 325 MG TAB PO PRN (02:28)
[2021-04-25 09:08] LABS: Mean Corpuscular HGB CONC 31.4 g/dL (32.0-36.0); Mean Corpuscular Hemoglobin 29.2 pg (27.0-31.0); Platelet Count 541 thou/uL (130-400); RBC Distribution Width 14.2 % (11.5-14.5); Red Blood Cell (RBC) Count 3.43 mill/uL (4.20-5.40); White Blood Cell (WBC) Count 20.5 thou/uL (4.8-10.8)
[2021-04-25 09:11] LABS: Anion Gap 13 mmol/L (10-20); BUN (Urea Nitrogen) 27 mg/dL (9.8-20.1); Calc. Creatinine Clearance 47 mL/min (70-130); Calcium 7.9 mg/dL (7.8-10.44); Carbon Dioxide 23 mmol/L (23-31); Chloride 106 mmol/L (98-107); Glucose 76 mg/dL (83-110); Potassium 3.8 mmol/L (3.5-5.1); Sodium 138 mmol/L (136-145)
[2021-04-25] MEDS: DULoxetine 60 MG CAP PO SCH (09:31)
[2021-04-25] MEDS: Amlodipine 10 MG TAB PO SCH (09:31)
[2021-04-25] MEDS: Megestrol Acetate 40 MG TAB PO SCH ×3 (09:32→21:21)
[2021-04-25] MEDS: Carvedilol 25 MG TAB PO SCH ×2 (09:32→21:21)
[2021-04-25] MEDS: ALPRAZolam 0.25 MG TAB PO SCH ×2 (09:33→21:21)
[2021-04-25] MEDS: glipiZIDE 5 MG TAB PO SCH (09:35)
[2021-04-25] MEDS: metFORMIN 500 MG TAB PO SCH ×2 (09:35→18:05)
[2021-04-25 09:36] LABS: Band 29 % (5-11); Eosinophils 2 % (0-10); Lymphocytes 7 % (21-51); MDiff Complete? YES; Monocytes 4 % (0-10); Myelocyte 1 % (0-0); Neutrophil 56 % (42-75); Platelet Morphology Comment Appears Increased; Polychromasia SLIGHT = 2-3 cells (100X) (0-2/hpf); Reactive Lymphocytes 1 % (0-10)
[2021-04-25] MEDS: Alogliptin 25 MG TAB PO SCH (09:39)
[2021-04-25] MEDS: Famotidine/PF 20 mg/2ml Vial SLOW IVP SCH (21:22)
[2021-04-25] MEDS: Enoxaparin Sodium 40 MG/0.4 ML SYRINGE SC SCH (21:30)
[2021-04-26 03:40] LABS: Anion Gap 17 mmol/L (10-20); BUN (Urea Nitrogen) 24 mg/dL (9.8-20.1); Calc. Creatinine Clearance 46 mL/min (70-130); Calcium 8.6 mg/dL (7.8-10.44); Carbon Dioxide 20 mmol/L (23-31); Chloride 104 mmol/L (98-107); Glucose 165 mg/dL (83-110); Potassium 4.1 mmol/L (3.5-5.1); Sodium 137 mmol/L (136-145)
[2021-04-26 04:33] LABS: Band 15 % (5-11); Hemoglobin 10.4 g/dL (12.0-16.0); Hypochromia SLIGHT = 6-15 cells (100X) (0-5/hpf); Lymphocytes 7 % (21-51); MDiff Complete? YES; Mean Corpuscular HGB CONC 31.3 g/dL (32.0-36.0); Mean Corpuscular Hemoglobin 29.1 pg (27.0-31.0); Mean Corpuscular Volume 93.1 fL (78.0-98.0); Mean Platelet Volume 6.9 fL (7.4-10.4); Monocytes 3 % (0-10); Neutrophil 73 % (42-75); Platelet Count 571 thou/uL (130-400); Platelet Morphology Comment Appears Increased; RBC Distribution Width 14.2 % (11.5-14.5); Reactive Lymphocytes 1 % (0-10); Red Blood Cell (RBC) Count 3.57 mill/uL (4.20-5.40); Toxic Granulation SLIGHT; White Blood Cell (WBC) Count 21.7 thou/uL (4.8-10.8)
[2021-04-26] MEDS: glipiZIDE 5 MG TAB PO SCH (09:08)
[2021-04-26] MEDS: Amlodipine 10 MG TAB PO SCH (09:09)
[2021-04-26] MEDS: ALPRAZolam 0.25 MG TAB PO SCH ×3 (09:09→21:00)
[2021-04-26] MEDS: Megestrol Acetate 40 MG TAB PO SCH ×4 (09:09→21:00)
[2021-04-26] MEDS: DULoxetine 60 MG CAP PO SCH (09:09)
[2021-04-26] MEDS: metFORMIN 500 MG TAB PO SCH ×2 (09:09→17:38)
[2021-04-26] MEDS: Carvedilol 25 MG TAB PO SCH ×3 (09:09→21:00)
[2021-04-26] MEDS: Alogliptin 25 MG TAB PO SCH (12:39)
[2021-04-26 17:36] LABS: ALT (SGPT) 8 U/L (8-55); AST (SGOT) 6 U/L (5-34); Albumin 2.4 g/dL (3.4-4.8); Alkaline Phosphatase 71 U/L (40-110); Bilirubin, Direct 0.2 mg/dL (0.1-0.3); Bilirubin, Total 0.3 mg/dL (0.2-1.2); Protein, Total 6.2 g/dL (5.8-8.1)
[2021-04-26] MEDS: Famotidine/PF 20 mg/2ml Vial SLOW IVP SCH (20:48)
[2021-04-26] MEDS: Enoxaparin Sodium 40 MG/0.4 ML SYRINGE SC SCH ×2 (20:48→21:00)
[2021-04-26] MEDS ORDERED: Lorazepam 2 MG/ML VIAL SLOW IVP SCH (21:31)
[2021-04-26] MEDS: Linezolid 600 MG in Premix Bag 1 BAG IVPB SCH (21:40)
[2021-04-26] MEDS: Aztreonam 2 GM in Sodium Chloride 0.9% 100 ML IVPB SCH (22:35)
[2021-04-27] MEDS: Aztreonam 2 GM in Sodium Chloride 0.9% 100 ML IVPB SCH ×3 (06:33→15:03)
[2021-04-27 06:48] LABS: #Eosinphils 0.4 thou/uL (0.0-0.7); #Lymphocytes 1.6 thou/uL (1.20-3.40); #Neutrophils 15.3 thou/uL (1.40-6.50); %Basophils 0.1 % (0.0-1.0); %Eosinophils 2.2 % (0.0-10.0); %Lymphocytes 8.7 % (21.0-51.0); %Monocytes 5.7 % (0.0-10.0); %Neutrophils 83.4 % (42.0-75.0); Hemoglobin 10.3 g/dL (12.0-16.0); Mean Corpuscular HGB CONC 33.1 g/dL (32.0-36.0); Mean Corpuscular Hemoglobin 30.5 pg (27.0-31.0); Mean Platelet Volume 6.4 fL (7.4-10.4); Platelet Count 624 thou/uL (130-400); RBC Distribution Width 14.1 % (11.5-14.5); Red Blood Cell (RBC) Count 3.38 mill/uL (4.20-5.40); White Blood Cell (WBC) Count 18.4 thou/uL (4.8-10.8)
[2021-04-27 07:03] LABS: Anion Gap 14 mmol/L (10-20); BUN (Urea Nitrogen) 23 mg/dL (9.8-20.1); Calc. Creatinine Clearance 52 mL/min (70-130); Carbon Dioxide 25 mmol/L (23-31); Chloride 104 mmol/L (98-107); Glucose 209 mg/dL (83-110); Sodium 139 mmol/L (136-145)
[2021-04-27] MEDS: Megestrol Acetate 40 MG TAB PO SCH ×3 (08:19→20:17)
[2021-04-27] MEDS: metFORMIN 500 MG TAB PO SCH ×2 (08:19→15:22)
[2021-04-27] MEDS: Alogliptin 25 MG TAB PO SCH (08:19)
[2021-04-27] MEDS: Carvedilol 25 MG TAB PO SCH ×3 (08:19→20:17)
[2021-04-27] MEDS: glipiZIDE 5 MG TAB PO SCH (08:19)
[2021-04-27] MEDS: Amlodipine 10 MG TAB PO SCH (08:19)
[2021-04-27] MEDS: DULoxetine 60 MG CAP PO SCH (08:20)
[2021-04-27] MEDS: ALPRAZolam 0.25 MG TAB PO SCH ×2 (08:20→20:17)
[2021-04-27] MEDS: Linezolid 600 MG in Premix Bag 1 BAG IVPB SCH (08:30)
[2021-04-27] MEDS ORDERED: D5W-AA 4.25% with LYTES 1,000 ML IV SCH (15:30)
[2021-04-27] MEDS: Furosemide 40 MG/4 ML VIAL SLOW IVP SCH (17:34)
[2021-04-27] MEDS: Enoxaparin Sodium 40 MG/0.4 ML SYRINGE SC SCH (20:40)
[2021-04-27] MEDS: Famotidine/PF 20 mg/2ml Vial SLOW IVP SCH (20:41)
[2021-04-27] MEDS ORDERED: Acetaminophen 650 MG Suppository PR SCH (21:30)
[2021-04-28] MEDS ORDERED: Acetaminophen 650 MG Suppository PR PRN (03:02)
[2021-04-28 06:19] LABS: #Eosinphils 0.4 thou/uL (0.0-0.7); #Lymphocytes 1.6 thou/uL (1.20-3.40); #Monocytes 1.3 thou/uL (0.11-0.59); %Basophils 0.1 % (0.0-1.0); %Eosinophils 2.3 % (0.0-10.0); %Lymphocytes 8.7 % (21.0-51.0); %Monocytes 7.3 % (0.0-10.0); %Neutrophils 81.6 % (42.0-75.0); Hemoglobin 10.2 g/dL (12.0-16.0); Mean Corpuscular HGB CONC 31.9 g/dL (32.0-36.0); Mean Corpuscular Hemoglobin 29.3 pg (27.0-31.0); Mean Corpuscular Volume 91.7 fL (78.0-98.0); Mean Platelet Volume 6.6 fL (7.4-10.4); Platelet Count 640 thou/uL (130-400); RBC Distribution Width 14.1 % (11.5-14.5); Red Blood Cell (RBC) Count 3.48 mill/uL (4.20-5.40); White Blood Cell (WBC) Count 18.4 thou/uL (4.8-10.8)
[2021-04-28 07:04] LABS: Anion Gap 16 mmol/L (10-20); BUN (Urea Nitrogen) 21 mg/dL (9.8-20.1); Calc. Creatinine Clearance 55 mL/min (70-130); Calcium 8.3 mg/dL (7.8-10.44); Carbon Dioxide 28 mmol/L (23-31); Chloride 100 mmol/L (98-107); Glucose 195 mg/dL (83-110); Potassium 3.6 mmol/L (3.5-5.1); Sodium 140 mmol/L (136-145)
[2021-04-28] MEDS: metFORMIN 500 MG TAB PO SCH ×2 (08:08→17:19)
[2021-04-28] MEDS: DULoxetine 60 MG CAP PO SCH (08:08)
[2021-04-28] MEDS: Amlodipine 10 MG TAB PO SCH (08:08)
[2021-04-28] MEDS: glipiZIDE 5 MG TAB PO SCH (08:08)
[2021-04-28] MEDS: ALPRAZolam 0.25 MG TAB PO SCH ×2 (08:08→19:26)
[2021-04-28] MEDS: Carvedilol 25 MG TAB PO SCH ×3 (08:08→19:52)
[2021-04-28] MEDS: Alogliptin 25 MG TAB PO SCH (08:08)
[2021-04-28] MEDS: Megestrol Acetate 40 MG TAB PO SCH ×3 (08:11→19:27)
[2021-04-28] MEDS ORDERED: Furosemide 40 MG/4 ML VIAL SLOW IVP SCH (09:00)
[2021-04-28] MEDS: HumaLOG 300 UNITS/3 ML VIAL SC PRN ×2 (11:17→17:20)
[2021-04-28] MEDS: Furosemide 40 MG/4 ML VIAL SLOW IVP SCH (17:19)
[2021-04-28] MEDS: Famotidine/PF 20 mg/2ml Vial SLOW IVP SCH (19:27)
[2021-04-28] MEDS: Enoxaparin Sodium 40 MG/0.4 ML SYRINGE SC SCH (19:44)
[2021-04-29] MEDS ORDERED: Aquaphor 85 GM TUBE TOP PRN (04:15)
[2021-04-29] MEDS: Megestrol Acetate 40 MG TAB PO SCH (08:41)
[2021-04-29] MEDS: ALPRAZolam 0.25 MG TAB PO SCH ×2 (08:41→21:05)
[2021-04-29] MEDS: Amlodipine 10 MG TAB PO SCH (08:41)
[2021-04-29] MEDS: glipiZIDE 5 MG TAB PO SCH (08:41)
[2021-04-29] MEDS: DULoxetine 60 MG CAP PO SCH (08:41)
[2021-04-29] MEDS: Carvedilol 25 MG TAB PO SCH ×2 (08:41→21:01)
[2021-04-29] MEDS: metFORMIN 500 MG TAB PO SCH (08:41)
[2021-04-29] MEDS: Alogliptin 25 MG TAB PO SCH (08:42)
[2021-04-29] MEDS ORDERED: Iopamidol 370 76% 100 ML VIAL ONE (12:24)
[2021-04-29] MEDS: Aquaphor 85 GM TUBE TOP SCH ×2 (14:56→21:05)
[2021-04-29] MEDS ORDERED: Saccharomyces boulardii 250 MG CAP PO SCH (15:45)
[2021-04-29] MEDS: Aztreonam 2 GM in Sodium Chloride 0.9% 100 ML IVPB SCH (16:33)
[2021-04-29] MEDS: HumaLOG 300 UNITS/3 ML VIAL SC PRN (16:43)
[2021-04-29] MEDS: Linezolid 600 MG in Premix Bag 1 BAG IVPB SCH (18:11)
[2021-04-29] MEDS: Senokot S 8.6-50 MG TAB PO SCH (19:04)
[2021-04-29] MEDS: Enoxaparin Sodium 40 MG/0.4 ML SYRINGE SC SCH (21:02)
[2021-04-29] MEDS: Nystatin Powder 15 GM BOT TOP SCH (21:05)
[2021-04-30] MEDS: Aztreonam 2 GM in Sodium Chloride 0.9% 100 ML IVPB SCH ×2 (03:20→15:59)
[2021-04-30] MEDS: Linezolid 600 MG in Premix Bag 1 BAG IVPB SCH ×2 (06:01→17:40)
[2021-04-30 06:39] LABS: Hemoglobin 10.6 g/dL (12.0-16.0); Mean Corpuscular Hemoglobin 29.6 pg (27.0-31.0); Mean Corpuscular Volume 92.5 fL (78.0-98.0); Mean Platelet Volume 6.5 fL (7.4-10.4); Platelet Count 619 thou/uL (130-400); RBC Distribution Width 13.8 % (11.5-14.5); Red Blood Cell (RBC) Count 3.56 mill/uL (4.20-5.40); White Blood Cell (WBC) Count 18.2 thou/uL (4.8-10.8)
[2021-04-30 06:59] LABS: Band 11 % (5-11); Eosinophils 2 % (0-10); Lymphocytes 8 % (21-51); MDiff Complete? YES; Metamyelocyte 1 % (0-0); Monocytes 10 % (0-10); Myelocyte 1 % (0-0); Neutrophil 67 % (42-75)
[2021-04-30 07:00] LABS: Sodium 137 mmol/L (136-145)
[2021-04-30 07:01] LABS: ALT (SGPT) Less than 7 U/L (8-55); AST (SGOT) 9 U/L (5-34); Albumin 2.3 g/dL (3.4-4.8); Alkaline Phosphatase 69 U/L (40-110); Anion Gap 19 mmol/L (10-20); BUN (Urea Nitrogen) 18 mg/dL (9.8-20.1); Bilirubin, Total 0.5 mg/dL (0.2-1.2); Calc. Creatinine Clearance 61 mL/min (70-130); Calcium 7.8 mg/dL (7.8-10.44); Carbon Dioxide 28 mmol/L (23-31); Chloride 93 mmol/L (98-107); Globulin 3.3 g/dL (2.4-3.5); Glucose 248 mg/dL (83-110); Magnesium 1.1 mg/dL (1.6-2.6); Phosphorus 2.9 mg/dL (2.3-4.7); Potassium 3.3 mmol/L (3.5-5.1); Protein, Total 5.6 g/dL (5.8-8.1)
[2021-04-30] MEDS ORDERED: Electrolyte Replacement Protocol 1 EACH FS SCH ×2 (07:45)
[2021-04-30] MEDS: Amlodipine 10 MG TAB PO SCH (09:00)
[2021-04-30] MEDS: ALPRAZolam 0.25 MG TAB PO SCH ×2 (09:00→20:56)
[2021-04-30] MEDS ORDERED: Magnesium Sulfate 4 GM in Sodium Chloride 0.9% 250 ML 250 ML IVPB SCH (09:00)
[2021-04-30] MEDS: Senokot S 8.6-50 MG TAB PO SCH ×2 (09:00→20:56)
[2021-04-30] MEDS: Multivit, Therapeutic 1 TAB PO SCH (09:00)
[2021-04-30] MEDS: Carvedilol 25 MG TAB PO SCH ×2 (09:00→20:56)
[2021-04-30] MEDS: glipiZIDE 5 MG TAB PO SCH (09:00)
[2021-04-30] MEDS: Saccharomyces boulardii 250 MG CAP PO SCH (09:00)
[2021-04-30] MEDS: Nystatin Powder 15 GM BOT TOP SCH ×2 (09:01→20:57)
[2021-04-30] MEDS: Aquaphor 85 GM TUBE TOP SCH ×3 (09:02→20:57)
[2021-04-30] MEDS: Potassium Chloride 20 MEQ TAB PO SCH ×2 (09:06→17:40)
[2021-04-30] MEDS: Alogliptin 25 MG TAB PO SCH (10:12)
[2021-04-30] MEDS: HumaLOG 300 UNITS/3 ML VIAL SC PRN ×2 (11:35→16:31)
[2021-04-30] MEDS: Enoxaparin Sodium 40 MG/0.4 ML SYRINGE SC SCH (20:56)
[2021-05-01] MEDS: Aztreonam 2 GM in Sodium Chloride 0.9% 100 ML IVPB SCH (03:30)
[2021-05-01] MEDS: Linezolid 600 MG in Premix Bag 1 BAG IVPB SCH (04:41)
[2021-05-01 06:31] LABS: Hemoglobin 10.9 g/dL (12.0-16.0); Mean Corpuscular HGB CONC 31.5 g/dL (32.0-36.0); Mean Corpuscular Hemoglobin 28.7 pg (27.0-31.0); Mean Corpuscular Volume 91.1 fL (78.0-98.0); Mean Platelet Volume 6.2 fL (7.4-10.4); Platelet Count 626 thou/uL (130-400); RBC Distribution Width 13.9 % (11.5-14.5); White Blood Cell (WBC) Count 24.6 thou/uL (4.8-10.8)
[2021-05-01 06:36] LABS: Anion Gap 14 mmol/L (10-20); BUN (Urea Nitrogen) 20 mg/dL (9.8-20.1); Calc. Creatinine Clearance 56 mL/min (70-130); Calcium 7.9 mg/dL (7.8-10.44); Carbon Dioxide 32 mmol/L (23-31); Chloride 95 mmol/L (98-107); Glucose 155 mg/dL (83-110); Phosphorus 3.1 mg/dL (2.3-4.7); Potassium 3.3 mmol/L (3.5-5.1); Sodium 138 mmol/L (136-145)
[2021-05-01 06:44] LABS: Band 15 % (5-11); Lymphocytes 10 % (21-51); MDiff Complete? YES; Monocytes 4 % (0-10); Neutrophil 71 % (42-75)
[2021-05-01] MEDS ORDERED: Magnesium 2 GM/50 ML 2 GM in Premix Bag 1 BAG IVPB SCH (07:00)
[2021-05-01] MEDS ORDERED: Potassium Chloride 20 MEQ TAB PO SCH (07:00)
[2021-05-01] MEDS: Saccharomyces boulardii 250 MG CAP PO SCH (07:36)
[2021-05-01] MEDS: Amlodipine 10 MG TAB PO SCH (07:36)
[2021-05-01] MEDS: Multivit, Therapeutic 1 TAB PO SCH (07:36)
[2021-05-01] MEDS: glipiZIDE 5 MG TAB PO SCH (07:36)
[2021-05-01] MEDS: Carvedilol 25 MG TAB PO SCH ×2 (07:36→20:00)
[2021-05-01] MEDS: Aquaphor 85 GM TUBE TOP SCH ×3 (07:37→20:01)
[2021-05-01] MEDS: ALPRAZolam 0.25 MG TAB PO SCH ×2 (07:37→20:00)
[2021-05-01] MEDS: Nystatin Powder 15 GM BOT TOP SCH ×2 (07:37→20:01)
[2021-05-01] MEDS: Senokot S 8.6-50 MG TAB PO SCH ×2 (07:38→20:00)
[2021-05-01] MEDS: Alogliptin 25 MG TAB PO SCH (08:33)
[2021-05-01] MEDS ORDERED: D5W-AA 4.25% with LYTES 1,000 ML BAG IV SCH (09:15)
[2021-05-01] MEDS ORDERED: Amino Acids 4.25 %/Dextrose 5% 1,000 ML IV SCH (10:00)
[2021-05-01] MEDS: HumaLOG 300 UNITS/3 ML VIAL SC PRN (11:39)
[2021-05-01 20:28] LABS: SARS-CoV-2 PCR by NAA Not Detected (NotDetected)
[2021-05-01] MEDS: Enoxaparin Sodium 40 MG/0.4 ML SYRINGE SC SCH (21:19)
[2021-05-02 06:45] LABS: #Basophils 0.1 thou/uL (0.0-0.2); #Eosinphils 0.7 thou/uL (0.0-0.7); #Lymphocytes 2.1 thou/uL (1.20-3.40); #Monocytes 1.1 thou/uL (0.11-0.59); #Neutrophils 18.9 thou/uL (1.40-6.50); %Basophils 0.2 % (0.0-1.0); %Eosinophils 2.9 % (0.0-10.0); %Lymphocytes 9.2 % (21.0-51.0); %Monocytes 4.9 % (0.0-10.0); %Neutrophils 82.8 % (42.0-75.0); Hemoglobin 9.9 g/dL (12.0-16.0); Mean Corpuscular HGB CONC 31.4 g/dL (32.0-36.0); Mean Corpuscular Volume 92.2 fL (78.0-98.0); Mean Platelet Volume 6.1 fL (7.4-10.4); Platelet Count 557 thou/uL (130-400); RBC Distribution Width 13.9 % (11.5-14.5); Red Blood Cell (RBC) Count 3.43 mill/uL (4.20-5.40); White Blood Cell (WBC) Count 22.8 thou/uL (4.8-10.8)
[2021-05-02 07:21] LABS: Anion Gap 13 mmol/L (10-20); BUN (Urea Nitrogen) 25 mg/dL (9.8-20.1); Calc. Creatinine Clearance 55 mL/min (70-130); Calcium 7.4 mg/dL (7.8-10.44); Carbon Dioxide 29 mmol/L (23-31); Chloride 94 mmol/L (98-107); Glucose 152 mg/dL (83-110); Magnesium 2.1 mg/dL (1.6-2.6); Phosphorus 2.2 mg/dL (2.3-4.7); Potassium 3.4 mmol/L (3.5-5.1); Sodium 133 mmol/L (136-145)
[2021-05-02] MEDS ORDERED: Potassium Chloride 20 MEQ TAB PO SCH (08:00)
[2021-05-02] MEDS: glipiZIDE 5 MG TAB PO SCH (08:51)
[2021-05-02] MEDS: Carvedilol 25 MG TAB PO SCH ×2 (08:51→20:45)
[2021-05-02] MEDS: Multivit, Therapeutic 1 TAB PO SCH (08:51)
[2021-05-02] MEDS: ALPRAZolam 0.25 MG TAB PO SCH ×2 (08:51→20:45)
[2021-05-02] MEDS: Amlodipine 10 MG TAB PO SCH (08:51)
[2021-05-02] MEDS: Saccharomyces boulardii 250 MG CAP PO SCH (08:51)
[2021-05-02] MEDS: Senokot S 8.6-50 MG TAB PO SCH ×2 (08:51→20:46)
[2021-05-02] MEDS: Nystatin Powder 15 GM BOT TOP SCH ×2 (08:52→20:46)
[2021-05-02] MEDS: Aquaphor 85 GM TUBE TOP SCH ×3 (08:52→20:45)
[2021-05-02] MEDS ORDERED: Potassium Phosphate 15 MMOL in Sodium Chloride 0.9% 250 ML 250 ML IVPB SCH (09:00)
[2021-05-02] MEDS: Ibuprofen 200 MG TAB PO PRN (12:17)
[2021-05-02] MEDS: HumaLOG 300 UNITS/3 ML VIAL SC PRN ×2 (12:20→17:34)
[2021-05-02] MEDS: Enoxaparin Sodium 40 MG/0.4 ML SYRINGE SC SCH (20:45)
[2021-05-03 07:15] LABS: Hemoglobin 10.1 g/dL (12.0-16.0); Mean Corpuscular HGB CONC 31.4 g/dL (32.0-36.0); Mean Corpuscular Hemoglobin 28.8 pg (27.0-31.0); Mean Corpuscular Volume 91.6 fL (78.0-98.0); Mean Platelet Volume 6.2 fL (7.4-10.4); Platelet Count 515 thou/uL (130-400); White Blood Cell (WBC) Count 20.1 thou/uL (4.8-10.8)
[2021-05-03 07:56] LABS: Anion Gap 15 mmol/L (10-20); BUN (Urea Nitrogen) 24 mg/dL (9.8-20.1); Calc. Creatinine Clearance 54 mL/min (70-130); Calcium 7.9 mg/dL (7.8-10.44); Carbon Dioxide 26 mmol/L (23-31); Chloride 99 mmol/L (98-107); Glucose 138 mg/dL (83-110); Magnesium 1.8 mg/dL (1.6-2.6); Phosphorus 3.2 mg/dL (2.3-4.7); Potassium 4.4 mmol/L (3.5-5.1); Sodium 136 mmol/L (136-145)
[2021-05-03] MEDS: Senokot S 8.6-50 MG TAB PO SCH ×2 (08:17→20:46)
[2021-05-03] MEDS: Carvedilol 25 MG TAB PO SCH ×2 (08:17→20:47)
[2021-05-03] MEDS: ALPRAZolam 0.25 MG TAB PO SCH ×2 (08:17→20:47)
[2021-05-03] MEDS: Aquaphor 85 GM TUBE TOP SCH ×3 (08:17→20:48)
[2021-05-03] MEDS: Saccharomyces boulardii 250 MG CAP PO SCH (08:17)
[2021-05-03] MEDS: Multivit, Therapeutic 1 TAB PO SCH (08:17)
[2021-05-03] MEDS: glipiZIDE 5 MG TAB PO SCH (08:17)
[2021-05-03] MEDS: Nystatin Powder 15 GM BOT TOP SCH ×2 (08:17→20:46)
[2021-05-03] MEDS: Amlodipine 10 MG TAB PO SCH (08:17)
[2021-05-03 10:27] LABS: Anisocytosis SLIGHT = 6-15 cells (100X) (0-5/hpf); Band 2 % (5-11); Eosinophils 3 % (0-10); Lymphocytes 13 % (21-51); MDiff Complete? YES; Monocytes 5 % (0-10); Neutrophil 76 % (42-75); Platelet Morphology Comment Appears Increased
[2021-05-03] MEDS: HumaLOG 300 UNITS/3 ML VIAL SC PRN (12:20)
[2021-05-03] MEDS ORDERED: Acetaminophen 325 MG TAB PO PRN (13:09)
[2021-05-03] MEDS: metFORMIN 500 MG TAB PO SCH (17:57)
[2021-05-03] MEDS: Enoxaparin Sodium 40 MG/0.4 ML SYRINGE SC SCH (20:48)
[2021-05-04] MEDS: HumaLOG 300 UNITS/3 ML VIAL SC PRN ×2 (06:43→12:02)
[2021-05-04 07:33] LABS: #Eosinphils 0.4 thou/uL (0.0-0.7); #Monocytes 1.3 thou/uL (0.11-0.59); #Neutrophils 17.4 thou/uL (1.40-6.50); %Eosinophils 1.8 % (0.0-10.0); %Lymphocytes 9.6 % (21.0-51.0); %Monocytes 6.2 % (0.0-10.0); %Neutrophils 82.4 % (42.0-75.0); Hemoglobin 9.5 g/dL (12.0-16.0); Mean Corpuscular HGB CONC 31.3 g/dL (32.0-36.0); Mean Corpuscular Volume 92.6 fL (78.0-98.0); Mean Platelet Volume 6.3 fL (7.4-10.4); Platelet Count 550 thou/uL (130-400); RBC Distribution Width 14.1 % (11.5-14.5); Red Blood Cell (RBC) Count 3.29 mill/uL (4.20-5.40); White Blood Cell (WBC) Count 21.2 thou/uL (4.8-10.8)
[2021-05-04 07:46] LABS: Anion Gap 14 mmol/L (10-20); BUN (Urea Nitrogen) 23 mg/dL (9.8-20.1); Calc. Creatinine Clearance 49 mL/min (70-130); Calcium 7.8 mg/dL (7.8-10.44); Carbon Dioxide 27 mmol/L (23-31); Chloride 99 mmol/L (98-107); Glucose 214 mg/dL (83-110); Potassium 3.8 mmol/L (3.5-5.1); Sodium 136 mmol/L (136-145)
[2021-05-04 07:51] VITALS: TEMP 98.4
[2021-05-04 08:51] VITALS: BP 115/69
[2021-05-04] MEDS: Senokot S 8.6-50 MG TAB PO SCH (08:55)
[2021-05-04] MEDS: Amlodipine 10 MG TAB PO SCH (08:55)
[2021-05-04] MEDS: Saccharomyces boulardii 250 MG CAP PO SCH (08:56)
[2021-05-04] MEDS: Carvedilol 25 MG TAB PO SCH (08:56)
[2021-05-04] MEDS: metFORMIN 500 MG TAB PO SCH (08:56)
[2021-05-04] MEDS: Aquaphor 85 GM TUBE TOP SCH (08:56)
[2021-05-04] MEDS: Nystatin Powder 15 GM BOT TOP SCH (08:56)
[2021-05-04] MEDS: Multivit, Therapeutic 1 TAB PO SCH (08:56)
[2021-05-04] MEDS: ALPRAZolam 0.25 MG TAB PO SCH (09:36)
[2021-05-04] MEDS: Ibuprofen 200 MG TAB PO PRN (11:03)
== END 2021-05-04 15:08 | DRG 871 ==
LOC: ERS 15:33 → T4-A 18:49 → OBSVTOIN 04-09 15:03 → T4-A 04-09 17:38
PROVIDERS: ADMIT Internal Medicine; ATTEND Internal Medicine
PROC: 3E0336Z Introduction of Nutritional Substance into Peripheral Vein, Percutaneous Approach (ICD-10-PCS; principal; 2021-04-28)
DX: A41.51 Sepsis due to Escherichia coli [E. coli] (principal); G92.8 Other toxic encephalopathy; J96.01 Acute respiratory failure with hypoxia; I69.351 Hemiplegia and hemiparesis following cerebral infarction affecting right dominant side; N30.00 Acute cystitis without hematuria; N17.9 Acute kidney failure, unspecified; L03.116 Cellulitis of left lower limb; I50.30 Unspecified diastolic (congestive) heart failure; Z16.24 Resistance to multiple antibiotics; R65.20 Severe sepsis without septic shock; Z20.822 Contact with and (suspected) exposure to COVID-19; E11.9 Type 2 diabetes mellitus without complications; E86.0 Dehydration; R21 Rash and other nonspecific skin eruption; F01.50 Vascular dementia, unspecified severity, without behavioral disturbance, psychotic disturbance, mood disturbance, and anxiety; D72.0 Genetic anomalies of leukocytes; I11.0 Hypertensive heart disease with heart failure; T36.1X5A Adverse effect of cephalosporins and other beta-lactam antibiotics, initial encounter; T50.995A Adverse effect of other drugs, medicaments and biological substances, initial encounter; E83.42 Hypomagnesemia; E87.6 Hypokalemia; I45.81 Long QT syndrome; E83.39 Other disorders of phosphorus metabolism; Z95.810 Presence of automatic (implantable) cardiac defibrillator; Z88.1 Allergy status to other antibiotic agents; Z88.2 Allergy status to sulfonamides; Z88.0 Allergy status to penicillin; Z88.5 Allergy status to narcotic agent; Z88.8 Allergy status to other drugs, medicaments and biological substances
CPT/HCPCS: 36415; 36416; 70450; 71045; 71250; 76770; 80048; 80053; 80076; 80202; 81003; 81015; 82607; 82746; 83036; 83735; 83880; 84100; 84145; 85025; 86140; 87040; 87077; 87086; 87186; 93306; 93970; 94760; 96365; 96372; 96375; G0378; J0360; J0692; J0696; J1630; J1650; J1815; J1940; J1956; J2020; J2060; J2185; J3370; J3475; J3486; J3490; J7050; Q9967; S0028; S0179; U0003; U0005

== ENCOUNTER 2021-05-13 02:52 | Inpatient (IN) | payer MEDICARE, OTHER ==
[2021-05-13] MEDS ORDERED: Norepinephrine 8 MG/0.9% NS 250 ML ONE (03:09)
[2021-05-13 03:36] LABS: Actual Bicarbonate (HCO3a) 15.2 mEq/L (22-28); Analyzer IN Cardio ER; Base Excess (BEa) -8.6 mEq/L (-2.0 to +3.0); Calcium, Ionized (arterial) 1.09 mmol/L (1.12-1.30); Carboxyhemoglobin (COHb) 0.3 gm% (0.0-3.0); O2 Tension (PaO2), arterial 224.1 mmHg (> 60.0); Potassium - ABG Lab 5.02 mmol/L (3.70-5.30); pH, Arterial 7.42 (7.35-7.45)
[2021-05-13 03:43] LABS: CO2 Tension 23.9 mmHg (35.0-45.0)
[2021-05-13 03:44] LABS: Puncture Site LBA
[2021-05-13 03:45] LABS: ALV-art Gradient 173.825 mmHg (0-20)
[2021-05-13 03:58] LABS: Hemoglobin 4.9 g/dL (12.0-16.0); Mean Corpuscular Hemoglobin 29.7 pg (27.0-31.0); Mean Corpuscular Volume 92.9 fL (78.0-98.0); Mean Platelet Volume 6.2 fL (7.4-10.4); Platelet Count 411 thou/uL (130-400); RBC Distribution Width 14.4 % (11.5-14.5); Red Blood Cell (RBC) Count 1.66 mill/uL (4.20-5.40); White Blood Cell (WBC) Count 15.2 thou/uL (4.8-10.8)
[2021-05-13] MEDS ORDERED: Vancomycin 1 GM/200 ML BAG ONE (04:08)
[2021-05-13 04:10] LABS: INR-International Normal Ratio 1.6; Prothrombin Time 19.5 sec (12.0-14.7)
[2021-05-13 04:11] LABS: PTT 32.8 sec (22.9-36.1)
[2021-05-13 04:13] LABS: D-Dimer Test 2.7 *mcg/mL (0.27-0.43)
[2021-05-13 04:14] LABS: ALT (SGPT) 69 U/L (8-55); AST (SGOT) 132 U/L (5-34); Albumin 1.7 g/dL (3.4-4.8); Alkaline Phosphatase 38 U/L (40-110); Anion Gap 14 mmol/L (10-20); BUN (Urea Nitrogen) 70 mg/dL (9.8-20.1); Bilirubin, Total 0.3 mg/dL (0.2-1.2); Calc. Creatinine Clearance 0 mL/min (70-130); Calcium 7.2 mg/dL (7.8-10.44); Carbon Dioxide 18 mmol/L (23-31); Chloride 115 mmol/L (98-107); Globulin 2.3 g/dL (2.4-3.5); Glucose 249 mg/dL (83-110); Magnesium 1.5 mg/dL (1.6-2.6); Potassium 5.2 mmol/L (3.5-5.1); Sodium 142 mmol/L (136-145)
[2021-05-13] MEDS ORDERED: Pantoprazole 40 MG VIAL IVP SCH (04:30)
[2021-05-13] MEDS ORDERED: Pantoprazole 80 MG, Admixture Fee 1 EACH in Sodium Chloride 0.9% 100 ML IVPB SCH (04:30)
[2021-05-13 04:31] LABS: Band 8 % (5-11); Lymphocytes 6 % (21-51); MDiff Complete? YES; Metamyelocyte 1 % (0-0); Monocytes 1 % (0-10); Myelocyte 3 % (0-0); Neutrophil 81 % (42-75); Platelet Morphology Comment Appears Increased; Reflex for Review?? YES
[2021-05-13] MEDS ORDERED: Acetaminophen 325 MG TAB PO PRN (04:53)
[2021-05-13] MEDS ORDERED: Ondansetron PF 4 MG/2 ML Vial IVP PRN (04:53)
[2021-05-13] MEDS ORDERED: Acetaminophen 650 MG Suppository PR PRN (04:53)
[2021-05-13 04:54] LABS: Bacteria/HPF 1+ HPF (None Seen); Bilirubin Negative (Negative); Blood, Urine Trace (Negative); Clarity Turbid (Clear); Glucose, Urine (Dipstick) Normal (Negative); Ketone, Urine Negative (Negative); Leukocyte 500 Leu/uL (Negative); Nitrite Negative (Negative); Protein, Urine (Dipstick) 10 mg/dL (Neg-Trace); Specific Gravity, Urine 1.017 (1.002-1.036); Squamous Epithelial 0-3 HPF (0-3); Urobilinogen Normal mg/dL (Less than 2); WBC/HPF Greater than 50 HPF (0-3); Yeast-Budding 1+ HPF (None Seen); pH, Urine 5.5 (5.0-9.0)
[2021-05-13] MEDS ORDERED: Dextrose 5% in Water 1,000 ML IV PRN (04:54)
[2021-05-13] MEDS ORDERED: Dextrose 50% Abboject 50 ML SYRINGE SLOW IVP PRN (04:54)
[2021-05-13] MEDS ORDERED: HumaLOG 300 UNITS/3 ML VIAL SC PRN (04:54)
[2021-05-13 05:04] LABS: SARS-CoV-2 NAA Rapid Test Not Detected (NotDetected)
[2021-05-13] MEDS ORDERED: Propofol BOLUS 1,000 MG/100 ML VIAL IV PRN (05:45)
[2021-05-13] MEDS ORDERED: Fentanyl BOLUS 250 ML IVPB PRN (05:45)
[2021-05-13] MEDS ORDERED: DISCONTINUE PREVIOUS NARCOTIC PAIN MEDICATIONS AND BENZODIAZEPINES FS SCH (05:45)
[2021-05-13] MEDS ORDERED: Ventilator Sedation Protocol 1 EACH FS SCH (05:45)
[2021-05-13] MEDS ORDERED: Propofol 1,000 MG/100 ML VIAL IV PRN (05:45)
[2021-05-13] MEDS ORDERED: Magnesium 2 GM/50 ML 2 GM in Premix Bag 1 BAG IVPB SCH (06:00)
[2021-05-13] MEDS: Sodium Chloride 0.9% 1,000 ML IV SCH (07:48)
[2021-05-13 09:39] LABS: Hemoglobin 7.5 g/dL (12.0-16.0)
[2021-05-13] MEDS ORDERED: EPINEPHrine 1 MG/10 ML Abboject SYRINGE ONE (10:56)
[2021-05-13] MEDS ORDERED: Vecuronium 10 MG VIAL ONE (11:10)
[2021-05-13] MEDS ORDERED: Heparin 1,000 UNITS/ML VIAL ONE (11:24)
[2021-05-13] MEDS ORDERED: Phytonadione 10 MG/ML AMP SC SCH (12:15)
[2021-05-13] MEDS: HumaLOG 300 UNITS/3 ML VIAL SC PRN ×2 (12:31→17:58)
[2021-05-13] MEDS ORDERED: Vecuronium 10 MG VIAL IVP SCH (13:00)
[2021-05-13] MEDS: Norepinephrine 8 MG/0.9% NS 250 ML IVPB PRN (13:14)
[2021-05-13] MEDS: Lorazepam 2 MG/ML VIAL SLOW IVP PRN (16:20)
[2021-05-13 18:05] LABS: Hemoglobin 9.3 g/dL (12.0-16.0)
[2021-05-13] MEDS ORDERED: Refresh Lacri-lube Opth Oint 7 GM TUBE EA EYE PRN (20:23)
[2021-05-13] MEDS ORDERED: VANCOMYCIN 1.25 GM/250 ML BAG 1.25 GM in Premix Bag 1 BAG IVPB SCH (21:00)
[2021-05-13] MEDS: Refresh Lacri-lube Opth Oint 7 GM TUBE EA EYE PRN (21:15)
[2021-05-13] MEDS: Vancomycin 1 GM in Premix Bag 1 BAG IVPB SCH (21:16)
[2021-05-13] MEDS: Pantoprazole 40 MG VIAL IVP SCH (21:16)
[2021-05-14] MEDS: Norepinephrine 8 MG/0.9% NS 250 ML IVPB PRN ×3 (00:47→17:37)
[2021-05-14] MEDS: Sodium Chloride 0.9% 1,000 ML IV SCH ×4 (00:48→21:36)
[2021-05-14] MEDS: HumaLOG 300 UNITS/3 ML VIAL SC PRN ×2 (01:02→11:25)
[2021-05-14 03:42] LABS: INR-International Normal Ratio 1.5; Prothrombin Time 18.5 sec (12.0-14.7)
[2021-05-14 03:48] LABS: ALT (SGPT) 116 U/L (8-55); AST (SGOT) 143 U/L (5-34); Alkaline Phosphatase 46 U/L (40-110); Anion Gap 14 mmol/L (10-20); BUN (Urea Nitrogen) 54 mg/dL (9.8-20.1); Bilirubin, Total 0.4 mg/dL (0.2-1.2); Calc. Creatinine Clearance 42 mL/min (70-130); Calcium 7.2 mg/dL (7.8-10.44); Carbon Dioxide 17 mmol/L (23-31); Chloride 117 mmol/L (98-107); Globulin 2.7 g/dL (2.4-3.5); Glucose 193 mg/dL (83-110); Magnesium 1.6 mg/dL (1.6-2.6); Potassium 4.1 mmol/L (3.5-5.1); Protein, Total 4.7 g/dL (5.8-8.1); Sodium 144 mmol/L (136-145)
[2021-05-14 04:05] LABS: Band 7 % (5-11); Hemoglobin 9.6 g/dL (12.0-16.0); Lymphocytes 9 % (21-51); MDiff Complete? YES; Mean Corpuscular HGB CONC 34.5 g/dL (32.0-36.0); Mean Corpuscular Hemoglobin 31.2 pg (27.0-31.0); Mean Corpuscular Volume 90.3 fL (78.0-98.0); Mean Platelet Volume 6.1 fL (7.4-10.4); Monocytes 1 % (0-10); Neutrophil 83 % (42-75); Platelet Count 356 thou/uL (130-400); RBC Distribution Width 15.2 % (11.5-14.5); Red Blood Cell (RBC) Count 3.09 mill/uL (4.20-5.40); White Blood Cell (WBC) Count 13.5 thou/uL (4.8-10.8)
[2021-05-14] MEDS ORDERED: Morphine 4 MG/ML VIAL SLOW IVP PRN (10:15)
[2021-05-14] MEDS: Pantoprazole 40 MG VIAL IVP SCH ×2 (10:29→22:31)
[2021-05-14] MEDS: Albumin 25% 25 GM/100 ML BOT IVPB SCH ×3 (10:36→21:38)
[2021-05-14 10:42] LABS: Hemoglobin 8.9 g/dL (12.0-16.0)
[2021-05-14] MEDS: Lorazepam 2 MG/ML VIAL SLOW IVP PRN (13:32)
[2021-05-14 20:43] LABS: Vancomycin, Trough 14.7 ug/mL
[2021-05-14 21:31] LABS: Hemoglobin 7.7 g/dL (12.0-16.0); Mean Corpuscular HGB CONC 33.4 g/dL (32.0-36.0); Mean Corpuscular Hemoglobin 30.5 pg (27.0-31.0); Mean Corpuscular Volume 91.3 fL (78.0-98.0); Mean Platelet Volume 6.3 fL (7.4-10.4); Platelet Count 253 thou/uL (130-400); RBC Distribution Width 15.6 % (11.5-14.5); Red Blood Cell (RBC) Count 2.52 mill/uL (4.20-5.40); White Blood Cell (WBC) Count 27.7 thou/uL (4.8-10.8)
[2021-05-14] MEDS: Vancomycin 1 GM in Premix Bag 1 BAG IVPB SCH (21:37)
[2021-05-14 21:45] LABS: Band 38 % (5-11); Lymphocytes 10 % (21-51); MDiff Complete? YES; Metamyelocyte 2 % (0-0); Monocytes 3 % (0-10); Neutrophil 47 % (42-75); Nucleated RBC 3 % (0); Polychromasia SLIGHT = 2-3 cells (100X) (0-2/hpf)
[2021-05-14 21:46] LABS: Anion Gap 15 mmol/L (10-20); BUN (Urea Nitrogen) 44 mg/dL (9.8-20.1); Calc. Creatinine Clearance 49 mL/min (70-130); Calcium 6.9 mg/dL (7.8-10.44); Carbon Dioxide 14 mmol/L (23-31); Chloride 123 mmol/L (98-107); Glucose 162 mg/dL (83-110); Magnesium 1.5 mg/dL (1.6-2.6); Phosphorus 3.5 mg/dL (2.3-4.7); Sodium 148 mmol/L (136-145)
[2021-05-14 21:50] LABS: Troponin I Less than 0.010 ng/mL (< 0.028)
[2021-05-14] MEDS ORDERED: Electrolyte Replacement Protocol 1 EACH FS SCH (22:00)
[2021-05-14] MEDS ORDERED: Magnesium Sulfate 4 GM in Sodium Chloride 0.9% 250 ML 250 ML IVPB SCH (22:30)
[2021-05-14] MEDS: Fentanyl CADD 100 ML IV SCH (22:32)
[2021-05-14 22:47] LABS: ALT (SGPT) 67 U/L (8-55); AST (SGOT) 36 U/L (5-34); Albumin 2.7 g/dL (3.4-4.8); Alkaline Phosphatase 98 U/L (40-110); Bilirubin, Direct 0.4 mg/dL (0.1-0.3); Bilirubin, Total 0.6 mg/dL (0.2-1.2); Protein, Total 4.9 g/dL (5.8-8.1)
[2021-05-15] MEDS: Refresh Lacri-lube Opth Oint 7 GM TUBE EA EYE PRN (00:10)
[2021-05-15] MEDS: HumaLOG 300 UNITS/3 ML VIAL SC PRN ×3 (00:10→18:29)
[2021-05-15] MEDS: Norepinephrine 8 MG/0.9% NS 250 ML IVPB PRN ×4 (01:47→22:39)
[2021-05-15] MEDS: Albumin 25% 25 GM/100 ML BOT IVPB SCH (03:33)
[2021-05-15 04:36] LABS: ALT (SGPT) 55 U/L (8-55); AST (SGOT) 25 U/L (5-34); Albumin 2.9 g/dL (3.4-4.8); Alkaline Phosphatase 80 U/L (40-110); Anion Gap 15 mmol/L (10-20); BUN (Urea Nitrogen) 41 mg/dL (9.8-20.1); Bilirubin, Total 0.5 mg/dL (0.2-1.2); Calc. Creatinine Clearance 46 mL/min (70-130); Calcium 7.1 mg/dL (7.8-10.44); Carbon Dioxide 14 mmol/L (23-31); Chloride 123 mmol/L (98-107); Globulin 2.1 g/dL (2.4-3.5); Glucose 162 mg/dL (83-110); Magnesium 2.7 mg/dL (1.6-2.6); Potassium 3.8 mmol/L (3.5-5.1); Sodium 148 mmol/L (136-145)
[2021-05-15 05:38] LABS: Mean Corpuscular HGB CONC 32.5 g/dL (32.0-36.0); Mean Corpuscular Hemoglobin 30.2 pg (27.0-31.0); Mean Corpuscular Volume 92.9 fL (78.0-98.0); Mean Platelet Volume 6.4 fL (7.4-10.4); Platelet Count 240 thou/uL (130-400); Red Blood Cell (RBC) Count 2.31 mill/uL (4.20-5.40); White Blood Cell (WBC) Count 24.7 thou/uL (4.8-10.8)
[2021-05-15 05:40] LABS: Band 59 % (5-11); Lymphocytes 10 % (21-51); MDiff Complete? YES; Neutrophil 31 % (42-75)
[2021-05-15] MEDS ORDERED: Meropenem 1 GM in Sodium Chloride 0.9% 100 ML IVPB SCH (06:00)
[2021-05-15] MEDS ORDERED: FLU VACC QS2021-22(65YR UP)/PF 240 MCG/0.7 ML SYRINGE IM ONE (09:00)
[2021-05-15] MEDS: Sodium Bicarbonate 75 MEQ in Dextrose 5% in Water 1,000 ML IV SCH (09:12)
[2021-05-15] MEDS: Sodium Chloride 0.9% 1,000 ML IV SCH (09:15)
[2021-05-15] MEDS: Pantoprazole 40 MG VIAL IVP SCH ×2 (09:32→22:20)
[2021-05-15] MEDS ORDERED: Refresh Lacri-lube Opth Oint 7 GM TUBE EA EYE PRN (10:25)
[2021-05-15] MEDS: Lorazepam 2 MG/ML VIAL SLOW IVP PRN (11:30)
[2021-05-15] MEDS ORDERED: Digoxin 0.5 MG/2 ML AMP SLOW IVP PRN (18:37)
[2021-05-15] MEDS ORDERED: Digoxin 0.5 MG/2 ML AMP SLOW IVP SCH ×2 (18:45→19:00)
[2021-05-15] MEDS: Vancomycin 1 GM in Premix Bag 1 BAG IVPB SCH (21:41)
[2021-05-16] MEDS ORDERED: Amiodarone 150 MG, Admixture Fee 1 EACH in Dextrose 5% in Water 100 ML IVPB SCH (00:30)
[2021-05-16] MEDS: Amiodarone 450 MG, Admixture Fee 1 EACH in Dextrose 5% in Water 250 ML IVPB SCH ×3 (00:46→21:19)
[2021-05-16] MEDS: HumaLOG 300 UNITS/3 ML VIAL SC PRN ×3 (01:05→12:52)
[2021-05-16] MEDS: Sodium Bicarbonate 75 MEQ in Dextrose 5% in Water 1,000 ML IV SCH (01:32)
[2021-05-16] MEDS ORDERED: Digoxin 0.5 MG/2 ML AMP SLOW IVP PRN (03:00)
[2021-05-16] MEDS: Fentanyl CADD 100 ML IV SCH ×2 (04:33→18:55)
[2021-05-16] MEDS: Norepinephrine 8 MG/0.9% NS 250 ML IVPB PRN ×3 (04:33→17:25)
[2021-05-16 04:44] LABS: Hemoglobin 7.6 g/dL (12.0-16.0); Mean Corpuscular HGB CONC 32.9 g/dL (32.0-36.0); Mean Corpuscular Hemoglobin 30.5 pg (27.0-31.0); Mean Corpuscular Volume 92.6 fL (78.0-98.0); Mean Platelet Volume 6.6 fL (7.4-10.4); Platelet Count 231 thou/uL (130-400); RBC Distribution Width 16.6 % (11.5-14.5); Red Blood Cell (RBC) Count 2.49 mill/uL (4.20-5.40); White Blood Cell (WBC) Count 27.2 thou/uL (4.8-10.8)
[2021-05-16 04:53] LABS: ALT (SGPT) 43 U/L (8-55); AST (SGOT) 15 U/L (5-34); Albumin 2.9 g/dL (3.4-4.8); Alkaline Phosphatase 114 U/L (40-110); Anion Gap 10 mmol/L (10-20); BUN (Urea Nitrogen) 36 mg/dL (9.8-20.1); Bilirubin, Total 0.4 mg/dL (0.2-1.2); Calc. Creatinine Clearance 47 mL/min (70-130); Calcium 7.4 mg/dL (7.8-10.44); Carbon Dioxide 20 mmol/L (23-31); Chloride 122 mmol/L (98-107); Globulin 2.2 g/dL (2.4-3.5); Glucose 163 mg/dL (83-110); Magnesium 2.3 mg/dL (1.6-2.6); Potassium 4.1 mmol/L (3.5-5.1); Protein, Total 5.1 g/dL (5.8-8.1); Sodium 148 mmol/L (136-145)
[2021-05-16 05:10] LABS: Band 25 % (5-11); Eosinophils 1 % (0-10); Lymphocytes 13 % (21-51); MDiff Complete? YES; Monocytes 1 % (0-10); Neutrophil 60 % (42-75)
[2021-05-16] MEDS: Pantoprazole 40 MG VIAL IVP SCH ×2 (08:45→21:19)
[2021-05-16] MEDS: Lorazepam 2 MG/ML VIAL SLOW IVP PRN (09:15)
[2021-05-16] MEDS: Albumin 25% 25 GM/100 ML BOT IVPB SCH ×2 (11:39→18:13)
[2021-05-16 20:50] LABS: Vancomycin, Trough 25.3 ug/mL
[2021-05-16] MEDS: Vancomycin 1 GM in Premix Bag 1 BAG IVPB SCH (21:18)
[2021-05-17] MEDS: Albumin 25% 25 GM/100 ML BOT IVPB SCH ×2 (00:23→05:25)
[2021-05-17] MEDS: HumaLOG 300 UNITS/3 ML VIAL SC PRN ×5 (00:33→22:25)
[2021-05-17] MEDS: Norepinephrine 8 MG/0.9% NS 250 ML IVPB PRN ×3 (00:45→17:20)
[2021-05-17 04:29] LABS: Hemoglobin 7.1 g/dL (12.0-16.0); Mean Corpuscular Volume 93.6 fL (78.0-98.0); Mean Platelet Volume 6.7 fL (7.4-10.4); Platelet Count 181 thou/uL (130-400); RBC Distribution Width 16.9 % (11.5-14.5); Red Blood Cell (RBC) Count 2.37 mill/uL (4.20-5.40); White Blood Cell (WBC) Count 22.6 thou/uL (4.8-10.8)
[2021-05-17 04:40] LABS: Phosphorus 3.3 mg/dL (2.3-4.7)
[2021-05-17 04:42] LABS: Anion Gap 11 mmol/L (10-20); BUN (Urea Nitrogen) 30 mg/dL (9.8-20.1); Calc. Creatinine Clearance 40 mL/min (70-130); Calcium 7.9 mg/dL (7.8-10.44); Carbon Dioxide 21 mmol/L (23-31); Chloride 119 mmol/L (98-107); Glucose 219 mg/dL (83-110); Magnesium 2.2 mg/dL (1.6-2.6); Potassium 3.9 mmol/L (3.5-5.1); Sodium 147 mmol/L (136-145)
[2021-05-17 05:49] LABS: Band 15 % (5-11); Eosinophils 1 % (0-10); Lymphocytes 3 % (21-51); MDiff Complete? YES; Monocytes 1 % (0-10); Neutrophil 80 % (42-75)
[2021-05-17] MEDS: Pantoprazole 40 MG VIAL IVP SCH ×2 (08:56→19:51)
[2021-05-17] MEDS: Amiodarone 200 MG TAB PER TUBE SCH ×2 (09:45→19:50)
[2021-05-17 09:49] LABS: Vancomycin, Random 21.2 ug/mL (See Comment)
[2021-05-17] MEDS ORDERED: Furosemide 40 MG/4 ML VIAL SLOW IVP SCH (12:30)
[2021-05-17] MEDS: Fentanyl CADD 100 ML IV SCH (16:50)
[2021-05-17] MEDS ORDERED: Vancomycin HCl 750 MG in Sodium Chloride 0.9% 250 ML 250 ML IVPB SCH (21:00)
[2021-05-18] MEDS: Norepinephrine 8 MG/0.9% NS 250 ML IVPB PRN ×3 (01:01→22:08)
[2021-05-18] MEDS: HumaLOG 300 UNITS/3 ML VIAL SC PRN ×4 (03:37→21:39)
[2021-05-18 04:47] LABS: Anion Gap 12 mmol/L (10-20); BUN (Urea Nitrogen) 28 mg/dL (9.8-20.1); Calc. Creatinine Clearance 40 mL/min (70-130); Carbon Dioxide 21 mmol/L (23-31); Chloride 118 mmol/L (98-107); Glucose 281 mg/dL (83-110); Potassium 3.2 mmol/L (3.5-5.1); Sodium 148 mmol/L (136-145)
[2021-05-18 04:51] LABS: Band 12 % (5-11); Eosinophils 1 % (0-10); Hemoglobin 7.2 g/dL (12.0-16.0); Lymphocytes 4 % (21-51); MDiff Complete? YES; Mean Corpuscular HGB CONC 32.1 g/dL (32.0-36.0); Mean Corpuscular Hemoglobin 30.2 pg (27.0-31.0); Mean Corpuscular Volume 94.3 fL (78.0-98.0); Monocytes 1 % (0-10); Neutrophil 82 % (42-75); Platelet Count 195 thou/uL (130-400); RBC Distribution Width 17.3 % (11.5-14.5); Red Blood Cell (RBC) Count 2.39 mill/uL (4.20-5.40); White Blood Cell (WBC) Count 24.4 thou/uL (4.8-10.8)
[2021-05-18] MEDS: Amiodarone 200 MG TAB PER TUBE SCH ×2 (09:08→20:11)
[2021-05-18] MEDS: Pantoprazole 40 MG VIAL IVP SCH ×2 (09:08→20:11)
[2021-05-18] MEDS ORDERED: Potassium Chloride 40 MEQ in Premix Bag 1 BAG IVPB SCH (09:15)
[2021-05-18] MEDS ORDERED: Potassium Chloride 20 MEQ TAB PO SCH (09:45)
[2021-05-18] MEDS: Furosemide 40 MG/4 ML VIAL SLOW IVP SCH ×2 (11:37→21:20)
[2021-05-18] MEDS: Potassium Chloride 20 MEQ TAB PO SCH ×2 (11:39→16:43)
[2021-05-18] MEDS: Fentanyl CADD 100 ML IV SCH (13:07)
[2021-05-19 05:19] LABS: Band 3 % (5-11); Eosinophils 1 % (0-10); Hemoglobin 7.2 g/dL (12.0-16.0); Hypochromia SLIGHT = 6-15 cells (100X) (0-5/hpf); Lymphocytes 14 % (21-51); MDiff Complete? YES; Mean Corpuscular HGB CONC 32.4 g/dL (32.0-36.0); Mean Corpuscular Hemoglobin 30.3 pg (27.0-31.0); Mean Corpuscular Volume 93.6 fL (78.0-98.0); Mean Platelet Volume 7.1 fL (7.4-10.4); Monocytes 5 % (0-10); Neutrophil 77 % (42-75); Platelet Count 224 thou/uL (130-400); Platelet Morphology Comment Appears Adequate; RBC Distribution Width 17.4 % (11.5-14.5); Red Blood Cell (RBC) Count 2.37 mill/uL (4.20-5.40); White Blood Cell (WBC) Count 20.1 thou/uL (4.8-10.8)
[2021-05-19 05:20] LABS: Anion Gap 12 mmol/L (10-20); BUN (Urea Nitrogen) 36 mg/dL (9.8-20.1); Calc. Creatinine Clearance 38 mL/min (70-130); Carbon Dioxide 25 mmol/L (23-31); Chloride 116 mmol/L (98-107); Glucose 293 mg/dL (83-110); Potassium 3.5 mmol/L (3.5-5.1); Sodium 149 mmol/L (136-145)
[2021-05-19] MEDS: HumaLOG 300 UNITS/3 ML VIAL SC PRN ×4 (05:31→21:13)
[2021-05-19 06:47] LABS: Actual Bicarbonate (HCO3a) 21.3 mEq/L (22-28); Base Excess (BEa) -4.5 mEq/L (-2.0 to +3.0); CO2 Tension 42.8 mmHg (35.0-45.0); Calcium, Ionized (arterial) 1.17 mmol/L (1.12-1.30); Carboxyhemoglobin (COHb) 0.6 gm% (0.0-3.0); Hemoglobin (Hb) 7.7 g/dL (12.0-16.0); pH, Arterial 7.32 (7.35-7.45)
[2021-05-19 07:16] LABS: Vancomycin, Random 21.2 ug/mL (See Comment)
[2021-05-19] MEDS ORDERED: Fentanyl CADD 100 ML ONE (08:02)
[2021-05-19] MEDS: Furosemide 100 MG/10 ML VIAL SLOW IVP SCH ×2 (08:08→19:38)
[2021-05-19] MEDS: Amiodarone 200 MG TAB PER TUBE SCH ×2 (08:08→20:21)
[2021-05-19] MEDS: Fentanyl CADD 100 ML IV SCH (08:09)
[2021-05-19] MEDS ORDERED: Potassium Chloride 20 MEQ TAB PER TUBE SCH (08:15)
[2021-05-19] MEDS: NPH, Human Insulin Isophane 300 UNIT/3 ML VIAL SC SCH ×3 (09:39→21:13)
[2021-05-19] MEDS: Pantoprazole 40 MG VIAL IVP SCH ×2 (12:57→20:21)
[2021-05-19 15:15] LABS: Potassium 3.2 mmol/L (3.5-5.1)
[2021-05-19 15:18] LABS: Vancomycin, Random 20.1 ug/mL (See Comment)
[2021-05-19] MEDS: Norepinephrine 8 MG/0.9% NS 250 ML IVPB PRN (16:17)
[2021-05-19] MEDS ORDERED: Potassium Bicarbonate/Cit Ac 20 MEQ TAB PER TUBE SCH (19:15)
[2021-05-20] MEDS ORDERED: Fentanyl CADD 100 ML ONE (01:26)
[2021-05-20 02:33] LABS: Vancomycin, Random 16.7 ug/mL (See Comment)
[2021-05-20] MEDS ORDERED: Vancomycin HCl 500 MG in Sodium Chloride 0.9% 100 ML IVPB SCH (03:30)
[2021-05-20] MEDS: NPH, Human Insulin Isophane 300 UNIT/3 ML VIAL SC SCH ×2 (03:36→09:00)
[2021-05-20] MEDS: HumaLOG 300 UNITS/3 ML VIAL SC PRN ×2 (03:37→21:47)
[2021-05-20] MEDS: Fentanyl CADD 100 ML IV SCH ×2 (03:38→23:11)
[2021-05-20 05:42] LABS: Anion Gap 9 mmol/L (10-20); BUN (Urea Nitrogen) 45 mg/dL (9.8-20.1); Calc. Creatinine Clearance 38 mL/min (70-130); Calcium 8.4 mg/dL (7.8-10.44); Carbon Dioxide 34 mmol/L (23-31); Chloride 113 mmol/L (98-107); Glucose 144 mg/dL (83-110); Potassium 3.1 mmol/L (3.5-5.1); Sodium 153 mmol/L (136-145)
[2021-05-20 06:52] LABS: Hemoglobin 7.6 g/dL (12.0-16.0); Mean Corpuscular HGB CONC 32.4 g/dL (32.0-36.0); Mean Corpuscular Hemoglobin 30.5 pg (27.0-31.0); Mean Corpuscular Volume 94.2 fL (78.0-98.0); Mean Platelet Volume 7.4 fL (7.4-10.4); Platelet Count 244 thou/uL (130-400); RBC Distribution Width 17.4 % (11.5-14.5); Red Blood Cell (RBC) Count 2.48 mill/uL (4.20-5.40); White Blood Cell (WBC) Count 15.6 thou/uL (4.8-10.8)
[2021-05-20 07:22] LABS: Anisocytosis SLIGHT = 6-15 cells (100X) (0-5/hpf); Band 13 % (5-11); Eosinophils 1 % (0-10); Lymphocytes 6 % (21-51); MDiff Complete? YES; Monocytes 5 % (0-10); Neutrophil 74 % (42-75); Nucleated RBC 1 % (0); Platelet Morphology Comment Appears Adequate; Polychromasia SLIGHT = 2-3 cells (100X) (0-2/hpf); Target Cells SLIGHT = 2-5 cells (100X) (0-1/hpf)
[2021-05-20] MEDS: Pantoprazole 40 MG VIAL IVP SCH ×2 (09:02→21:24)
[2021-05-20] MEDS: Amiodarone 200 MG TAB PER TUBE SCH ×2 (09:02→21:22)
[2021-05-20] MEDS ORDERED: Potassium Bicarbonate/Cit Ac 20 MEQ TAB PER TUBE SCH (09:30)
[2021-05-20] MEDS ORDERED: Electrolyte Replacement Protocol FS PRN (10:00)
[2021-05-20] MEDS ORDERED: Digoxin 0.5 MG/2 ML AMP SLOW IVP SCH (19:00)
[2021-05-20] MEDS ORDERED: Diltiazem 125 MG in Sodium Chloride 0.9% 100 ML IVPB SCH (19:00)
[2021-05-21] MEDS: Norepinephrine 8 MG/0.9% NS 250 ML IVPB PRN (02:13)
[2021-05-21] MEDS: HumaLOG 300 UNITS/3 ML VIAL SC PRN ×3 (04:24→18:52)
[2021-05-21 05:08] LABS: Band 25 % (5-11); Hemoglobin 7.5 g/dL (12.0-16.0); Hypochromia SLIGHT = 6-15 cells (100X) (0-5/hpf); Lymphocytes 1 % (21-51); MDiff Complete? YES; Mean Corpuscular HGB CONC 31.5 g/dL (32.0-36.0); Mean Corpuscular Hemoglobin 29.7 pg (27.0-31.0); Mean Corpuscular Volume 94.5 fL (78.0-98.0); Mean Platelet Volume 7.6 fL (7.4-10.4); Monocytes 1 % (0-10); Neutrophil 73 % (42-75); Platelet Count 289 thou/uL (130-400); Platelet Morphology Comment Appears Adequate; RBC Distribution Width 17.2 % (11.5-14.5); Red Blood Cell (RBC) Count 2.54 mill/uL (4.20-5.40); White Blood Cell (WBC) Count 30.6 thou/uL (4.8-10.8)
[2021-05-21 05:15] LABS: Anion Gap 14 mmol/L (10-20); BUN (Urea Nitrogen) 45 mg/dL (9.8-20.1); Calc. Creatinine Clearance 35 mL/min (70-130); Calcium 8.2 mg/dL (7.8-10.44); Carbon Dioxide 33 mmol/L (23-31); Chloride 105 mmol/L (98-107); Glucose 310 mg/dL (83-110); Potassium 3.1 mmol/L (3.5-5.1); Sodium 149 mmol/L (136-145)
[2021-05-21 05:18] LABS: Vancomycin, Random 20.1 ug/mL (See Comment)
[2021-05-21] MEDS ORDERED: Potassium Bicarbonate/Cit Ac 20 MEQ TAB PER TUBE SCH (08:00)
[2021-05-21] MEDS: Amiodarone 200 MG TAB PER TUBE SCH ×2 (09:19→20:51)
[2021-05-21] MEDS: Pantoprazole 40 MG VIAL IVP SCH ×2 (11:07→20:51)
[2021-05-21 15:53] LABS: SARS-CoV-2 PCR by NAA Not Detected (NotDetected)
[2021-05-21] MEDS ORDERED: HumaLOG 300 UNITS/3 ML VIAL SC PRN (17:24)
[2021-05-21] MEDS ORDERED: Dextrose 50% Abboject 50 ML SYRINGE SLOW IVP PRN (17:24)
[2021-05-21] MEDS ORDERED: Dextrose 5% in Water 1,000 ML IV PRN (17:24)
[2021-05-21] MEDS: Dextrose 5% w/ 20 mEq KCl 1,000 ML IV SCH (19:33)
[2021-05-21] MEDS: Lantus 1000 UNITS/10 ML VIAL SC SCH (20:52)
[2021-05-21] MEDS: Fentanyl CADD 100 ML IV SCH (20:53)
[2021-05-22] MEDS: HumaLOG 300 UNITS/3 ML VIAL SC PRN ×3 (04:09→18:50)
[2021-05-22 05:04] LABS: Band 37 % (5-11); Hemoglobin 6.5 g/dL (12.0-16.0); Hypochromia SLIGHT = 6-15 cells (100X) (0-5/hpf); Lymphocytes 5 % (21-51); MDiff Complete? YES; Mean Corpuscular HGB CONC 31.3 g/dL (32.0-36.0); Mean Corpuscular Hemoglobin 29.8 pg (27.0-31.0); Mean Corpuscular Volume 95.2 fL (78.0-98.0); Mean Platelet Volume 7.7 fL (7.4-10.4); Monocytes 1 % (0-10); Neutrophil 57 % (42-75); Platelet Count 244 thou/uL (130-400); Platelet Morphology Comment Appears Adequate; RBC Distribution Width 17.2 % (11.5-14.5); Red Blood Cell (RBC) Count 2.18 mill/uL (4.20-5.40); White Blood Cell (WBC) Count 26.3 thou/uL (4.8-10.8)
[2021-05-22 05:16] LABS: BUN (Urea Nitrogen) 44 mg/dL (9.8-20.1); Calc. Creatinine Clearance 41 mL/min (70-130); Calcium 8.1 mg/dL (7.8-10.44); Glucose 424 mg/dL (83-110)
[2021-05-22 05:25] LABS: Anion Gap 17 mmol/L (10-20); Carbon Dioxide 31 mmol/L (23-31); Chloride 105 mmol/L (98-107); Potassium 3.3 mmol/L (3.5-5.1); Sodium 150 mmol/L (136-145)
[2021-05-22] MEDS ORDERED: Vancomycin HCl 500 MG in Sodium Chloride 0.9% 100 ML IVPB SCH (06:00)
[2021-05-22] MEDS ORDERED: Potassium Chloride 20 MEQ TAB PER TUBE SCH (06:30)
[2021-05-22] MEDS: Amiodarone 200 MG TAB PER TUBE SCH ×2 (09:00→21:16)
[2021-05-22] MEDS: Pantoprazole 40 MG VIAL IVP SCH ×2 (09:00→21:16)
[2021-05-22] MEDS: Lantus 1000 UNITS/10 ML VIAL SC SCH ×2 (09:00→21:32)
[2021-05-22 10:07] LABS: Potassium 3.7 mmol/L (3.5-5.1)
[2021-05-22] MEDS: Micafungin 100 MG in Sodium Chloride 0.9% 100 ML IVPB SCH (12:35)
[2021-05-22 13:07] LABS: Potassium 3.6 mmol/L (3.5-5.1)
[2021-05-22] MEDS: Dextrose 5% w/ 20 mEq KCl 1,000 ML IV SCH (17:43)
[2021-05-23 04:51] LABS: Band 11 % (5-11); Hemoglobin 7.8 g/dL (12.0-16.0); Hypochromia SLIGHT = 6-15 cells (100X) (0-5/hpf); Lymphocytes 10 % (21-51); MDiff Complete? YES; Mean Corpuscular HGB CONC 31.7 g/dL (32.0-36.0); Mean Corpuscular Hemoglobin 29.6 pg (27.0-31.0); Mean Corpuscular Volume 93.3 fL (78.0-98.0); Mean Platelet Volume 8.1 fL (7.4-10.4); Monocytes 5 % (0-10); Neutrophil 74 % (42-75); Platelet Count 217 thou/uL (130-400); Platelet Morphology Comment Appears Adequate; RBC Distribution Width 16.9 % (11.5-14.5); Red Blood Cell (RBC) Count 2.62 mill/uL (4.20-5.40); White Blood Cell (WBC) Count 21.3 thou/uL (4.8-10.8)
[2021-05-23 04:52] LABS: Anion Gap 13 mmol/L (10-20); BUN (Urea Nitrogen) 42 mg/dL (9.8-20.1); Calc. Creatinine Clearance 40 mL/min (70-130); Calcium 7.5 mg/dL (7.8-10.44); Carbon Dioxide 32 mmol/L (23-31); Chloride 100 mmol/L (98-107); Glucose 450 mg/dL (83-110); Potassium 4.6 mmol/L (3.5-5.1); Sodium 140 mmol/L (136-145)
[2021-05-23 04:53] LABS: Vancomycin, Random 14.2 ug/mL (See Comment)
[2021-05-23] MEDS: HumaLOG 300 UNITS/3 ML VIAL SC PRN ×3 (05:51→18:00)
[2021-05-23] MEDS ORDERED: Vancomycin HCl 500 MG in Sodium Chloride 0.9% 100 ML IVPB SCH ×2 (06:00→09:00)
[2021-05-23 07:08] LABS: Actual Bicarbonate (HCO3a) 33.4 mEq/L (22-28); Base Excess (BEa) 9.1 mEq/L (-2.0 to +3.0); Calcium, Ionized (arterial) 1.07 mmol/L (1.12-1.30); Carboxyhemoglobin (COHb) 0.6 gm% (0.0-3.0); Hemoglobin (Hb) 8.7 g/dL (12.0-16.0); Potassium - ABG Lab 4.08 mmol/L (3.70-5.30); pH, Arterial 7.49 (7.35-7.45)
[2021-05-23 08:12] LABS: O2 Tension (PaO2), arterial 21.4 mmHg (> 60.0)
[2021-05-23] MEDS: Dextrose 5% w/ 20 mEq KCl 1,000 ML IV SCH (08:40)
[2021-05-23] MEDS: Pantoprazole 40 MG VIAL IVP SCH ×2 (08:40→21:49)
[2021-05-23] MEDS: Amiodarone 200 MG TAB PER TUBE SCH ×2 (08:50→21:49)
[2021-05-23] MEDS: Lantus 1000 UNITS/10 ML VIAL SC SCH ×2 (09:04→21:50)
[2021-05-23] MEDS: Micafungin 100 MG in Sodium Chloride 0.9% 100 ML IVPB SCH (15:07)
[2021-05-23] MEDS ORDERED: Lactated Ringer's 500 ML IV SCH (19:45)
[2021-05-24] MEDS: Fentanyl 100 MCG/2 ML VIAL SLOW IVP PRN ×2 (00:23→02:55)
[2021-05-24] MEDS: Nystatin Cream 15 GM TUBE TOP SCH ×3 (01:21→21:25)
[2021-05-24 05:31] LABS: Band 19 % (5-11); Hemoglobin 8.1 g/dL (12.0-16.0); Hypochromia SLIGHT = 6-15 cells (100X) (0-5/hpf); Lymphocytes 14 % (21-51); MDiff Complete? YES; Mean Corpuscular HGB CONC 31.4 g/dL (32.0-36.0); Mean Corpuscular Volume 92.3 fL (78.0-98.0); Monocytes 4 % (0-10); Neutrophil 63 % (42-75); Platelet Count 230 thou/uL (130-400); Platelet Morphology Comment Appears Adequate; RBC Distribution Width 16.4 % (11.5-14.5); Red Blood Cell (RBC) Count 2.79 mill/uL (4.20-5.40)
[2021-05-24 05:34] LABS: Anion Gap 10 mmol/L (10-20); BUN (Urea Nitrogen) 42 mg/dL (9.8-20.1); Calc. Creatinine Clearance 46 mL/min (70-130); Calcium 7.6 mg/dL (7.8-10.44); Carbon Dioxide 33 mmol/L (23-31); Chloride 102 mmol/L (98-107); Glucose 186 mg/dL (83-110); Potassium 4.3 mmol/L (3.5-5.1); Sodium 141 mmol/L (136-145); Vancomycin, Random 15.3 ug/mL (See Comment)
[2021-05-24] MEDS ORDERED: Vancomycin HCl 500 MG in Sodium Chloride 0.9% 100 ML IVPB SCH (06:30)
[2021-05-24] MEDS: Amiodarone 200 MG TAB PER TUBE SCH ×2 (09:03→21:24)
[2021-05-24] MEDS: Pantoprazole 40 MG VIAL IVP SCH ×2 (09:04→21:24)
[2021-05-24] MEDS: Fluconazole In NaCl,Iso-Osm 400 MG in Premix Bag 1 BAG IVPB SCH (09:27)
[2021-05-24] MEDS: Lantus 1000 UNITS/10 ML VIAL SC SCH ×2 (11:12→11:34)
[2021-05-24] MEDS: HumaLOG 300 UNITS/3 ML VIAL SC PRN (11:13)
[2021-05-24] MEDS ORDERED: Lantus 1000 UNITS/10 ML VIAL SC SCH (21:45)
[2021-05-25] MEDS: Fentanyl 100 MCG/2 ML VIAL SLOW IVP PRN (02:51)
[2021-05-25 05:12] LABS: Band 13 % (5-11); Hemoglobin 8.1 g/dL (12.0-16.0); Hypochromia SLIGHT = 6-15 cells (100X) (0-5/hpf); Lymphocytes 6 % (21-51); MDiff Complete? YES; Mean Corpuscular HGB CONC 31.2 g/dL (32.0-36.0); Mean Corpuscular Hemoglobin 29.1 pg (27.0-31.0); Mean Platelet Volume 8.4 fL (7.4-10.4); Monocytes 9 % (0-10); Neutrophil 72 % (42-75); Platelet Count 244 thou/uL (130-400); Platelet Morphology Comment Appears Adequate; RBC Distribution Width 15.9 % (11.5-14.5); Red Blood Cell (RBC) Count 2.79 mill/uL (4.20-5.40); White Blood Cell (WBC) Count 14.1 thou/uL (4.8-10.8)
[2021-05-25 05:13] LABS: Vancomycin, Random 14.7 ug/mL (See Comment)
[2021-05-25 05:14] LABS: Anion Gap 9 mmol/L (10-20); BUN (Urea Nitrogen) 39 mg/dL (9.8-20.1); Calc. Creatinine Clearance 47 mL/min (70-130); Calcium 7.5 mg/dL (7.8-10.44); Carbon Dioxide 34 mmol/L (23-31); Chloride 101 mmol/L (98-107); Glucose 168 mg/dL (83-110); Potassium 4.1 mmol/L (3.5-5.1); Sodium 140 mmol/L (136-145)
[2021-05-25] MEDS ORDERED: Vancomycin HCl 500 MG in Sodium Chloride 0.9% 100 ML IVPB SCH (06:00)
[2021-05-25] MEDS: Pantoprazole 40 MG VIAL IVP SCH ×2 (08:51→21:54)
[2021-05-25] MEDS: Amiodarone 200 MG TAB PER TUBE SCH ×2 (08:51→21:54)
[2021-05-25] MEDS: Fluconazole In NaCl,Iso-Osm 400 MG in Premix Bag 1 BAG IVPB SCH (08:51)
[2021-05-25] MEDS: Nystatin Cream 15 GM TUBE TOP SCH ×2 (09:01→22:19)
[2021-05-25] MEDS: Lantus 1000 UNITS/10 ML VIAL SC SCH ×3 (10:14→22:18)
[2021-05-25] MEDS: HumaLOG 300 UNITS/3 ML VIAL SC PRN (10:14)
[2021-05-26 04:24] LABS: Hemoglobin 7.7 g/dL (12.0-16.0); Mean Corpuscular HGB CONC 31.5 g/dL (32.0-36.0); Mean Corpuscular Hemoglobin 29.4 pg (27.0-31.0); Mean Corpuscular Volume 93.3 fL (78.0-98.0); Mean Platelet Volume 8.4 fL (7.4-10.4); Platelet Count 261 thou/uL (130-400); RBC Distribution Width 15.8 % (11.5-14.5); Red Blood Cell (RBC) Count 2.64 mill/uL (4.20-5.40); White Blood Cell (WBC) Count 11.5 thou/uL (4.8-10.8)
[2021-05-26 04:32] LABS: Anion Gap 9 mmol/L (10-20); BUN (Urea Nitrogen) 36 mg/dL (9.8-20.1); Calc. Creatinine Clearance 49 mL/min (70-130); Calcium 7.6 mg/dL (7.8-10.44); Carbon Dioxide 34 mmol/L (23-31); Chloride 101 mmol/L (98-107); Glucose 149 mg/dL (83-110); Sodium 140 mmol/L (136-145)
[2021-05-26 04:57] LABS: Band 18 % (5-11); Eosinophils 2 % (0-10); Lymphocytes 9 % (21-51); MDiff Complete? YES; Metamyelocyte 1 % (0-0); Monocytes 6 % (0-10); Neutrophil 63 % (42-75)
[2021-05-26 05:58] LABS: Vancomycin, Random 15.5 ug/mL (See Comment)
[2021-05-26] MEDS: Fluconazole In NaCl,Iso-Osm 400 MG in Premix Bag 1 BAG IVPB SCH (10:07)
[2021-05-26] MEDS: Amiodarone 200 MG TAB PER TUBE SCH ×2 (10:08→21:09)
[2021-05-26] MEDS: Pantoprazole 40 MG VIAL IVP SCH ×2 (10:09→21:12)
[2021-05-26] MEDS: Nystatin Cream 15 GM TUBE TOP SCH ×2 (10:09→21:18)
[2021-05-26] MEDS: Lantus 1000 UNITS/10 ML VIAL SC SCH ×2 (10:44→21:12)
[2021-05-26] MEDS: HumaLOG 300 UNITS/3 ML VIAL SC PRN ×2 (10:44→16:42)
[2021-05-26] MEDS: Vancomycin HCl 500 MG in Sodium Chloride 0.9% 100 ML IVPB SCH (15:43)
[2021-05-27] MEDS: Dextrose 5% w/ 20 mEq KCl 1,000 ML IV SCH (03:39)
[2021-05-27 04:19] LABS: Anion Gap 12 mmol/L (10-20); BUN (Urea Nitrogen) 37 mg/dL (9.8-20.1); Calc. Creatinine Clearance 52 mL/min (70-130); Calcium 7.8 mg/dL (7.8-10.44); Carbon Dioxide 31 mmol/L (23-31); Chloride 103 mmol/L (98-107); Glucose 117 mg/dL (83-110); Potassium 3.9 mmol/L (3.5-5.1); Sodium 142 mmol/L (136-145)
[2021-05-27 05:20] LABS: Band 20 % (5-11); Eosinophils 2 % (0-10); Hemoglobin 7.5 g/dL (12.0-16.0); Lymphocytes 8 % (21-51); MDiff Complete? YES; Mean Corpuscular HGB CONC 31.8 g/dL (32.0-36.0); Mean Corpuscular Hemoglobin 29.7 pg (27.0-31.0); Mean Corpuscular Volume 93.2 fL (78.0-98.0); Mean Platelet Volume 8.1 fL (7.4-10.4); Monocytes 1 % (0-10); Neutrophil 69 % (42-75); Platelet Count 320 thou/uL (130-400); RBC Distribution Width 15.6 % (11.5-14.5); Red Blood Cell (RBC) Count 2.52 mill/uL (4.20-5.40); White Blood Cell (WBC) Count 13.4 thou/uL (4.8-10.8)
[2021-05-27] MEDS ORDERED: diphenhydrAMINE 50 MG/ML VIAL IVP SCH (08:30)
[2021-05-27] MEDS: Nystatin Cream 15 GM TUBE TOP SCH ×2 (09:00→20:37)
[2021-05-27] MEDS: Fentanyl 100 MCG/2 ML VIAL SLOW IVP PRN (09:04)
[2021-05-27] MEDS: Amiodarone 200 MG TAB PER TUBE SCH ×2 (09:05→20:37)
[2021-05-27] MEDS: Pantoprazole 40 MG VIAL IVP SCH ×2 (09:06→20:36)
[2021-05-27] MEDS: Micafungin 100 MG in Sodium Chloride 0.9% 100 ML IVPB SCH (09:39)
[2021-05-27] MEDS: Lantus 1000 UNITS/10 ML VIAL SC SCH ×2 (09:40→21:01)
[2021-05-27] MEDS: Lorazepam 2 MG/ML VIAL SLOW IVP PRN ×3 (11:25→18:29)
[2021-05-27] MEDS ORDERED: Furosemide 100 MG/10 ML VIAL SLOW IVP SCH (12:00)
[2021-05-27 13:05] VITALS: BP 160/112
[2021-05-27] MEDS ORDERED: Scopolamine 1.5 mg/72 hour Patch TOP SCH (13:45)
[2021-05-27] MEDS: Vancomycin HCl 500 MG in Sodium Chloride 0.9% 100 ML IVPB SCH (13:49)
[2021-05-28] MEDS: Lorazepam 2 MG/ML VIAL SLOW IVP PRN (01:12)
[2021-05-28 04:15] LABS: Hemoglobin 8.8 g/dL (12.0-16.0); Mean Corpuscular Hemoglobin 28.9 pg (27.0-31.0); Mean Corpuscular Volume 93.3 fL (78.0-98.0); Mean Platelet Volume 7.5 fL (7.4-10.4); Platelet Count 448 thou/uL (130-400); RBC Distribution Width 15.4 % (11.5-14.5); Red Blood Cell (RBC) Count 3.03 mill/uL (4.20-5.40); White Blood Cell (WBC) Count 15.5 thou/uL (4.8-10.8)
[2021-05-28 04:22] LABS: Anion Gap 13 mmol/L (10-20); BUN (Urea Nitrogen) 33 mg/dL (9.8-20.1); Calc. Creatinine Clearance 49 mL/min (70-130); Calcium 8.1 mg/dL (7.8-10.44); Carbon Dioxide 36 mmol/L (23-31); Chloride 99 mmol/L (98-107); Glucose 63 mg/dL (83-110); Iron 16 ug/dL (50-170); Iron Binding Capacity, Total 134 mcg/dL (265-497); Potassium 3.2 mmol/L (3.5-5.1); Sodium 145 mmol/L (136-145)
[2021-05-28 04:29] LABS: Iron 16 ug/dL (50-170); Iron Binding Capacity, Total 130 mcg/dL (265-497)
[2021-05-28] MEDS ORDERED: Potassium Chloride 40 MEQ in Premix Bag 1 BAG IVPB SCH (04:30)
[2021-05-28] MEDS ORDERED: Potassium Bicarbonate/Cit Ac 20 MEQ TAB PER TUBE SCH (04:30)
[2021-05-28 04:39] LABS: Band 15 % (5-11); Eosinophils 2 % (0-10); Lymphocytes 7 % (21-51); MDiff Complete? YES; Monocytes 1 % (0-10); Neutrophil 73 % (42-75)
[2021-05-28] MEDS: Micafungin 100 MG in Sodium Chloride 0.9% 100 ML IVPB SCH (08:18)
[2021-05-28] MEDS: Nystatin Cream 15 GM TUBE TOP SCH ×2 (08:18→20:24)
[2021-05-28] MEDS: Lantus 1000 UNITS/10 ML VIAL SC SCH (08:19)
[2021-05-28] MEDS: Amiodarone 200 MG TAB PER TUBE SCH ×2 (08:19→20:25)
[2021-05-28] MEDS: Pantoprazole 40 MG VIAL IVP SCH ×2 (08:20→20:24)
[2021-05-28 13:44] LABS: Vancomycin, Trough 16.4 ug/mL
[2021-05-28] MEDS: Acetylcysteine 20% 200 MG/ML 30 ML VIAL INH SCH ×3 (14:07→23:11)
[2021-05-28] MEDS: Vancomycin HCl 500 MG in Sodium Chloride 0.9% 100 ML IVPB SCH (15:22)
[2021-05-28] MEDS ORDERED: Albuterol Sulfate 2.5 mg/3 ml Neb EZPAP PRN (15:27)
[2021-05-28] MEDS ORDERED: acetaZOLAMIDE Sodium 500 mg Vial IVP SCH (15:30)
[2021-05-28] MEDS ORDERED: Sterile Water 10 ML ONE (16:02)
[2021-05-28] MEDS ORDERED: Lantus 1000 UNITS/10 ML VIAL SC SCH (21:00)
[2021-05-29 04:56] LABS: Hemoglobin 8.6 g/dL (12.0-16.0); Mean Corpuscular HGB CONC 30.6 g/dL (32.0-36.0); Mean Corpuscular Hemoglobin 28.7 pg (27.0-31.0); Mean Corpuscular Volume 93.7 fL (78.0-98.0); Mean Platelet Volume 7.5 fL (7.4-10.4); Platelet Count 514 thou/uL (130-400); RBC Distribution Width 15.3 % (11.5-14.5)
[2021-05-29 05:06] LABS: Anion Gap 15 mmol/L (10-20); BUN (Urea Nitrogen) 28 mg/dL (9.8-20.1); Calc. Creatinine Clearance 46 mL/min (70-130); Calcium 7.7 mg/dL (7.8-10.44); Carbon Dioxide 31 mmol/L (23-31); Chloride 102 mmol/L (98-107); Glucose 102 mg/dL (83-110); Potassium 3.3 mmol/L (3.5-5.1); Sodium 145 mmol/L (136-145)
[2021-05-29] MEDS ORDERED: Potassium Chloride 40 MEQ in Premix Bag 1 BAG IVPB SCH (05:30)
[2021-05-29 05:31] LABS: Band 25 % (5-11); Lymphocytes 8 % (21-51); MDiff Complete? YES; Monocytes 1 % (0-10); Neutrophil 66 % (42-75)
[2021-05-29] MEDS: Acetylcysteine 20% 200 MG/ML 30 ML VIAL INH SCH ×2 (07:14→10:38)
[2021-05-29] MEDS: Pantoprazole 40 MG VIAL IVP SCH (08:36)
[2021-05-29] MEDS: Amiodarone 200 MG TAB PER TUBE SCH (08:36)
[2021-05-29] MEDS: Micafungin 100 MG in Sodium Chloride 0.9% 100 ML IVPB SCH (08:36)
[2021-05-29] MEDS: Nystatin Cream 15 GM TUBE TOP SCH (08:37)
[2021-05-29] MEDS: Lantus 1000 UNITS/10 ML VIAL SC SCH (08:37)
[2021-05-29] MEDS ORDERED: acetaZOLAMIDE Sodium 500 mg Vial IVP SCH (09:00)
[2021-05-29 09:23] VITALS: BMI 27.9
[2021-05-29 11:49] LABS: SARS-CoV-2 PCR by NAA Not Detected (NotDetected)
[2021-05-29] MEDS: Vancomycin HCl 500 MG in Sodium Chloride 0.9% 100 ML IVPB SCH (15:14)
[2021-05-29 16:00] VITALS: TEMP 96.2
[2021-05-29] MEDS ORDERED: Doxycycline Hyclate 100 MG, Admixture Fee 1 EACH in Sodium Chloride 0.9% 100 ML IVPB SCH (18:00)
[2021-05-29] MEDS ORDERED: Doxycycline 100 MG in Syringe 0 ML IVPB SCH (21:00)
== END 2021-05-29 18:18 | disposition home or self-care (01) | DRG 870 ==
LOC: ERS 02:52 → CCU 03:04 → IMCU/EMU 05-29 11:54
PROVIDERS: ADMIT Internal Medicine; ATTEND Internal Medicine
PROC: 02HV33Z Insertion of Infusion Device into Superior Vena Cava, Percutaneous Approach (ICD-10-PCS; principal; 2021-05-13)
PROC: 3E043XZ Introduction of Vasopressor into Central Vein, Percutaneous Approach (ICD-10-PCS; 2021-05-13)
PROC: 0BH17EZ Insertion of Endotracheal Airway into Trachea, Via Natural or Artificial Opening (ICD-10-PCS; 2021-05-13)
PROC: 5A1955Z Respiratory Ventilation, Greater than 96 Consecutive Hours (ICD-10-PCS; 2021-05-13)
PROC: 30233N1 Transfusion of Nonautologous Red Blood Cells into Peripheral Vein, Percutaneous Approach (ICD-10-PCS; 2021-05-13)
PROC: 0W3P8ZZ Control Bleeding in Gastrointestinal Tract, Via Natural or Artificial Opening Endoscopic (ICD-10-PCS; 2021-05-13)
PROC: 02H633Z Insertion of Infusion Device into Right Atrium, Percutaneous Approach (ICD-10-PCS; 2021-05-22)
PROC: B548ZZA Ultrasonography of Superior Vena Cava, Guidance (ICD-10-PCS; 2021-05-22)
DX: A41.02 Sepsis due to Methicillin resistant Staphylococcus aureus (principal); R57.8 Other shock; J18.9 Pneumonia, unspecified organism; J96.01 Acute respiratory failure with hypoxia; E43 Unspecified severe protein-calorie malnutrition; K55.21 Angiodysplasia of colon with hemorrhage; R65.21 Severe sepsis with septic shock; G93.41 Metabolic encephalopathy; I33.0 Acute and subacute infective endocarditis; T82.7XXA Infection and inflammatory reaction due to other cardiac and vascular devices, implants and grafts, initial encounter; I69.351 Hemiplegia and hemiparesis following cerebral infarction affecting right dominant side; N17.9 Acute kidney failure, unspecified; D62 Acute posthemorrhagic anemia; E87.0 Hyperosmolality and hypernatremia; E87.2 Acidosis; I47.1 Supraventricular tachycardia; I42.9 Cardiomyopathy, unspecified; G72.81 Critical illness myopathy; B49 Unspecified mycosis; B37.49 Other urogenital candidiasis; J90 Pleural effusion, not elsewhere classified; E87.3 Alkalosis; Z20.822 Contact with and (suspected) exposure to COVID-19; E78.00 Pure hypercholesterolemia, unspecified; E11.65 Type 2 diabetes mellitus with hyperglycemia; I10 Essential (primary) hypertension; I48.91 Unspecified atrial fibrillation; E88.09 Other disorders of plasma-protein metabolism, not elsewhere classified; E83.42 Hypomagnesemia; E87.5 Hyperkalemia; D63.8 Anemia in other chronic diseases classified elsewhere; I45.81 Long QT syndrome; E87.6 Hypokalemia; Z95.810 Presence of automatic (implantable) cardiac defibrillator; Z88.0 Allergy status to penicillin; Z88.5 Allergy status to narcotic agent; Z88.1 Allergy status to other antibiotic agents; Z88.2 Allergy status to sulfonamides; Z79.82 Long term (current) use of aspirin; Z79.84 Long term (current) use of oral hypoglycemic drugs; Z68.28 Body mass index [BMI] 28.0-28.9, adult; Y83.1 Surgical operation with implant of artificial internal device as the cause of abnormal reaction of the patient, or of later complication, without mention of misadventure at the time of the procedure
CPT/HCPCS: 36415; 36416; 36430; 36556; 36569; 36600; 51702; 70450; 71045; 74018; 80048; 80053; 80202; 81003; 81015; 82140; 82271; 82728; 82805; 83540; 83550; 83605; 83735; 83880; 84100; 84484; 85007; 85025; 85027; 85060; 85379; 85610; 85730; 86140; 86850; 86870; 86900; 86901; 86922; 87040; 87077; 87086; 87149; 87186; 93005; 93010; 93312; 94002; 94003; 94640; 96365; 96366; 96368; 96375; 96376; 99292; C1751; C9113; J0132; J0171; J0282; J1120; J1160; J1200; J1450; J1644; J1815; J1940; J1956; J2060; J2248; J2704; J3010; J3370; J3430; J3475; J3480; J3490; J7050; J7070; J7120; J7620; P9016; P9047; U0002; U0003; U0005